=== PATIENT | male | born 1960 | race Hispanic/Latino ===

== ENCOUNTER 2016-12-08 14:51 | Inpatient (IN) | payer MEDICAID, OTHER ==
[2016-12-08 14:52] VITALS: BMI 26.4
[2016-12-08] MEDS ORDERED: Albuterol-Ipratrop 3 mg / 0.5 (3 ml) UD INH STA ×4 (15:21→17:45)
--- NOTE | 2016-12-08 15:42 | RAD ---
PROCEDURE: CHEST RADIOGRAPH, 1 VIEW HISTORY: SOB COMPARISON: None available. FINDINGS: LUNGS: Atelectasis and or developing infiltrates. PLEURA: No pneumothorax or pleural fluid seen. CARDIOVASCULAR: Normal. OSSEOUS STRUCTURES: No significant abnormalities. VISUALIZED UPPER ABDOMEN: Normal. OTHER FINDINGS: None. IMPRESSION: Bibasilar opacities may represent atelectasis and or developing infiltrates. Bibasilar opacities could represent Developing infiltrates could be excluded followup radiographs. .
[2016-12-08] MEDS ORDERED: Albuterol-Ipratrop 3 mg / 0.5 (3 ml) UD ONE ×2 (15:50→16:40)
[2016-12-08 16:15] LABS: BASO # 0.1 K/uL (0.0-0.2); BASO % 0.9 % (0.0-2.0); EOS # 0.2 K/uL (0.0-0.7); EOS % 1.2 % (0.0-4.0); LYMPH # 2.6 K/uL (1.0-4.3); LYMPH % 19.6 % (20.0-40.0); MEAN CELL VOLUME 92.1 fL (80.0-94.0); MEAN CORPUSCULAR HEMOGLOBIN 30.8 pg (27.0-31.0); MEAN CORPUSCULAR HGB CONC 33.5 g/dL (33.0-37.0); MEAN PLATELET VOLUME 7.6 fL (7.2-11.7); MONO # 1.7 K/uL (0.0-0.8); MONO % 12.4 % (0.0-10.0); RED CELL DISTRIBUTION WIDTH 13.7 % (11.5-14.5); WHITE BLOOD COUNT 13.5 K/uL (4.8-10.8)
[2016-12-08 16:25] LABS: CHLORIDE 95 mmol/L (98-107); SODIUM 132 mmol/L (132-148)
[2016-12-08 16:26] LABS: INR 1.2; POTASSIUM 3.8 mmol/L (3.6-5.2)
[2016-12-08 16:27] LABS: GFR AFRICAN-AMERICAN > 60
[2016-12-08 16:28] LABS: ALB/GLOB RATIO 1.2 (1.0-2.1); ALKALINE PHOSPHATASE 63 U/L (38-126); ALT/SGPT 29 U/L (21-72); AST/SGOT 23 U/L (17-59); BILIRUBIN,TOTAL 0.8 mg/dL (0.2-1.3); BLOOD UREA NITROGEN 9 mg/dL (9-20); CARBON DIOXIDE 25 mmol/L (22-30); GLUCOSE,RANDOM 104 mg/dL (75-110); TOTAL PROTEIN 7.2 g/dL (6.3-8.3)
[2016-12-08 16:29] LABS: CALCIUM 8.3 mg/dl (8.6-10.4)
--- NOTE | 2016-12-08 17:02 | C.PDOC ---
History Of Present Illness 56-year-old male, PMHx includes COPD, presents to the emergency department with complaints of shortness of breath, non-productive cough and wheezing for the past three days. Patient states that symptoms worsened over the weekend. Patient admits to pleuritic chest pain associated with the cough. He denies fever, leg swelling, abdominal pain, nausea/vomiting, palpitations. Time Seen by Provider: 12/08/16 15:12 Chief Complaint (Nursing): Respiratory Distress History Per: Patient History/Exam Limitations: no limitations Onset/Duration Of Symptoms: Days Current Symptoms Are (Timing): Still Present Current Respiratory Medications: See Home Med List Severity: Moderate Past Medical History Reviewed: Historical Data, Nursing Documentation, Vital Signs Vital Signs: Last Vital Signs Temp 97.9 F 12/14/16 07:35 Pulse 88 12/14/16 07:35 Resp 20 12/14/16 07:35 BP 144/90 12/14/16 07:35 Pulse Ox 95 12/14/16 07:35 - Medical History PMH: Back Problems, COPD, Depression, Emphysema, Pneumonia, Sleep Apnea - [facility] Procedures ALCOHOL DETOXIFICATION (04/06/15) DETOXIFICATION SERVICES FOR SUBSTANCE ABUSE TREATMENT (09/28/15) GROUP PSYCHOTHERAPY (09/28/15) INDIVID PSYCHOTHERAP NEC (02/12/15) INFLUENZA VACCINATION (05/28/13) INJECT/INFUSE NEC (01/28/15) MEDS MGMT FOR SUBSTANCE ABUSE TREATMENT, ANTABUSE (09/28/15) NEBULIZER THERAPY (11/22/14) OTHER GROUP THERAPY (02/12/15) PSYCHIAT DRUG THERAP NEC (02/12/15) Family History: States: No Known Family Hx - Social History Hx Tobacco Use: Yes Hx Alcohol Use: No Hx Substance Use: Yes (heroin use) - Immunization History Hx Tetanus Toxoid Vaccination: No Hx Influenza Vaccination: No Hx Pneumococcal Vaccination: No Review Of Systems Except As Marked, All Systems Reviewed And Found Negative. Constitutional: Negative for: Fever, Chills Cardiovascular: Negative for: Chest Pain, Palpitations Respiratory: Positive for: Cough, Shortness of Breath, Wheezing Gastrointestinal: Negative for: Nausea, Vomiting, Abdominal Pain Musculoskeletal: Negative for: Back Pain Skin: Negative for: Rash Neurological: Negative for: Weakness, Numbness, Dizziness Physical Exam - Physical Exam Appears: Non-toxic, No Acute Distress (mild distress), Other (speaking in full sentences.) Skin: Warm, Dry, No Rash Head: Normacephalic Eye(s): bilateral: Normal Inspection Oral Mucosa: Moist Neck: Normal, Normal ROM Chest: Symmetrical Cardiovascular: Rhythm Regular Respiratory: No Accessory Muscle Use, No Rales, No Rhonchi, Wheezing ( expiratory wheezing B/L) Gastrointestinal/Abdominal: Normal Exam, Bowel Sounds, Soft, No Tenderness Extremity: Normal ROM, No Pedal Edema, No Calf Tenderness Pulses: Left Dorsalis Pedis: Normal, Right Dorsalis Pedis: Normal Neurological/Psych: Oriented x3 ED Course And Treatment - Laboratory Results Result Diagrams: 12/13/16 07:09 12/13/16 07:09 ECG: Interpreted By Me, Viewed By Me (sinus tachycardia 104 bpm, normal axis, no acute ST/T wave changes) ECG Interpretation: Abnormal (tachycardia ) O2 Sat by Pulse Oximetry: 97 (RA) Pulse Ox Interpretation: Normal - Radiology CXR Interpretation: Yes: Other (Bibasilar opacities may represent atelectasis and or developing infiltrates. Bibasilar opacities could represent Developing infiltrates could be excluded followup radiographs.) Progress Note: Bloodwork, EKG, Chest X-Ray ordered and reviewed. Patient given IV solumedrol and multiple duoneb treatments. IV avelox given for pneumonia, IV ativan given for mild tremors/alcohol withdrawal. Patient states he does not have PMD yet, will be seeing Dr. Mejia when his insurance comes through , but has yet done so. 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 Reevaluation Time: 05:40 Reassessment Condition: Improved (On reassessment, patient still c/o SOB. On exam, he has mild tremors and admits he is withdrawing from alcohol, last drink was yesterday. He has improved air entry B/L with expiratory wheezing B/L. POx 88-90% on RA. CXR shows B/L developing infiltrates. Patient will need admission for copd/pneumonia.) - Physician Consult Information Physician Contacted: Caryn Zapata Outcome Of Conversation: Discussed patient with Dr. Jasmina Zapata, agrees with admission for COPD exacerbation, pneumonia, alcohol/heroin dependence, alcohol withdrawal. Critical Care Time - Critical Care Note Total Time (in mins): 35 Documented critical care: time excludes all time spent performing seperately billable procedures. Disposition - Disposition Disposition: HOSPITALIZED Disposition Time: 17:51 Condition: STABLE - Clinical Impression Clinical Impression: COPD (chronic obstructive pulmonary disease), Alcohol dependence, Opioid dependence, Pneumonia, Alcohol withdrawal - Scribe Statement The provider has reviewed the documentation as recorded by the Aliaibasia Sage All medical record entries made by the Scribe were at my direction and personally dictated by me. I have reviewed the chart and agree that the record accurately reflects my personal performance of the history, physical exam, medical decision making, and the department course for this patient. I have also personally directed, reviewed, and agree with the discharge instructions and disposition. Decision To Admit - Pt Status Changed To: Hospital Disposition Of: Inpatient - Admit Certification Admit to Inpatient:: After my assessment, the patient will require hospitalization for at least two midnights. This is because of the severity of symptoms shown, intensity of services needed, and/or the medical risk in this patient being treated as an outpatient. - InPatient: Physician Admission Certification: I certify that this patient requires 2 or more midnights of care for the following reason:: see notes - . Bed Request Type: Telemetry Admitting Physician: Caryn Zapata Patient Diagnosis: COPD (chronic obstructive pulmonary disease), Alcohol dependence, Opioid dependence, Pneumonia, Alcohol withdrawal
[2016-12-08] MEDS ORDERED: Moxifloxacin IV 400mg/250ml NS 400 MG/250 ML BAG IVPB STA (17:43)
[2016-12-08] MEDS ORDERED: Multivitamin (MVI) 10 ML, Thiamine 100 MG, Folic Acid 1 MG in Sodium Chloride 0.9% 1,00... IVPB ONE (17:45)
[2016-12-08] MEDS ORDERED: Albuterol 0.083% Inhal Sol (2.5 mg/3 mL) UD IH STA (17:52)
[2016-12-08] MEDS ORDERED: Albuterol-Ipratrop 3 mg / 0.5 (3 ml) UD IH SCH (18:00)
[2016-12-08] MEDS ORDERED: Moxifloxacin IV 400mg/250ml NS 400 MG/250 ML BAG IVPB ONE (18:38)
[2016-12-08] MEDS: Albuterol-Ipratrop 3 mg / 0.5 (3 ml) UD IH SCH (20:45)
--- NOTE | 2016-12-08 21:20 | CP.PCM.HP ---
Past Patient History - Infectious Disease Hx of Infectious Diseases: None - Tetanus Immunizations Tetanus Immunization: Unknown - Past Medical History & Family History Past Medical History?: Yes - Past Social History Smoking Status: Light Smoker < 10 Cigarettes Daily - CARDIAC Hx Cardiac Disorders: No Hx Hypertension: No - PULMONARY Hx Respiratory Disorders: Yes Hx Chronic Obstructive Pulmonary Disease (COPD): Yes Hx Emphysema: Yes Hx Pneumonia: Yes Hx Sleep Apnea: Yes - NEUROLOGICAL Hx Neurological Disorder: No Hx Seizures: No - HEENT Hx HEENT Problems: No - RENAL Hx Chronic Kidney Disease: No - ENDOCRINE/METABOLIC Hx Endocrine Disorders: No - HEMATOLOGICAL/ONCOLOGICAL Hx Blood Disorders: No Hx Human Immunodeficiency Virus (HIV): No - INTEGUMENTARY Hx Dermatological Problems: No - MUSCULOSKELETAL/RHEUMATOLOGICAL Hx Falls: No - GASTROINTESTINAL Hx Gastrointestinal Disorders: No - GENITOURINARY/GYNECOLOGICAL Hx Genitourinary Disorders: No Hx Sexually Transmitted Disorders: No - PSYCHIATRIC Hx Psychophysiologic Disorder: Yes Hx Depression: Yes Hx Substance Use: Yes (heroin use last 12/06/16 at 1pm) - SURGICAL HISTORY Hx Surgeries: No - ANESTHESIA Hx Anesthesia: No Meds Allergies/Adverse Reactions: Allergies Allergy/AdvReac Type Severity Reaction Status Date / Time No Known Allergies Allergy Verified 12/08/16 14:59 Results - Vital Signs Recent Vital Signs: Last Vital Signs Temp 98 F 12/08/16 20:05 Pulse 115 H 12/08/16 20:45 Resp 20 12/08/16 20:05 BP 126/80 12/08/16 20:05 Pulse Ox 93 L 12/08/16 20:05 - Labs Result Diagrams: 12/08/16 16:12 12/08/16 16:12
[2016-12-08] MEDS: Moxifloxacin IV 400mg/250ml NS 400 MG/250 ML BAG IVPB SCH (22:34)
[2016-12-08] MEDS: MethylPREDNISolone 40 mg Vial IVP SCH (22:37)
[2016-12-09] MEDS: Albuterol-Ipratrop 3 mg / 0.5 (3 ml) UD IH SCH ×3 (01:20→07:49)
[2016-12-09] MEDS: Albuterol-Ipratrop 3 mg / 0.5 (3 ml) UD INH SCH ×4 (02:32→20:06)
[2016-12-09] MEDS ORDERED: DiphenhydrAMINE 50 mg/ml Inj IVP STA (02:53)
[2016-12-09] MEDS: MethylPREDNISolone 40 mg Vial IVP SCH ×2 (06:54→14:02)
[2016-12-09] MEDS: Tiotropium 18 mcg Cap For Inhalation INH SCH (08:34)
[2016-12-09] MEDS: Fluticasone-Salmeterol 250-50mcg Diskus INH SCH ×2 (08:34→20:06)
[2016-12-09] MEDS: Enoxaparin 40 mg Syringe SC SCH (09:10)
[2016-12-09] MEDS: Pantoprazole 40 mg EC Tab PO SCH (09:10)
--- NOTE | 2016-12-09 09:41 | CP.PCM.PN ---
Addendum entered and electronically signed by Arlin Adams DO 12/09/16 10:18 : Add to assessment: -Alcohol use disorder Start Librium taper Multivitamin, Folic acid, thiamine daily Monitor for withdrawal Original Note: <Arlin Adams - Last Filed: 12/09/16 09:28> Subjective - Date & Time of Evaluation Date of Evaluation: 12/09/16 Time of Evaluation: 09:28 - Subjective Subjective: Medicine Progress Note- Arlin Adams PGY2 Patient seen and examined. Patient has a history of COPD and states that since Wednesday 12/06 he has been experiencing productive coughing with green colored sputum. The patient is breathing comfortably. Denies chest pain, fever, swelling, abdominal pain, and headache. Objective - Vital Signs/Intake and Output Vital Signs (last 24 hours): Temp Pulse Resp BP Pulse Ox 97.6 F 77 20 136/76 98 12/08/16 23:30 12/09/16 04:01 12/08/16 23:30 12/08/16 23:30 12/08/16 23:30 Intake and Output: 12/09/16 12/09/16 06:59 18:59 Intake Total 1425 Output Total 1000 Balance 425 - Medications Medications: Current Medications Albuterol/Ipratropium (Duoneb 3 Mg/0.5 Mg (3 Ml) Ud) 3 ml INH RQ6 [facility] Last Admin: 12/09/16 07:50 Dose: 3 ml Enoxaparin Sodium (Lovenox) 40 mg SC DAILY [facility] Last Admin: 12/09/16 09:10 Dose: 40 mg Guaifenesin (Mucinex La) 600 mg PO Q12 [facility] Moxifloxacin HCl (Avelox Iv 400mg/250ml Ns) 400 mg in 250 mls @ 167 mls/hr IVPB Q24H [facility] Last Admin: 12/08/16 22:34 Dose: Not Given Methylprednisolone (Solu-Medrol) 40 mg IVP Q8 [facility] Last Admin: 12/09/16 06:54 Dose: 40 mg Montelukast Sodium (Singulair) 10 mg PO HS [facility] Last Admin: 12/08/16 22:37 Dose: 10 mg Pantoprazole Sodium (Protonix Ec Tab) 40 mg PO DAILY [facility] Last Admin: 12/09/16 09:10 Dose: 40 mg Fluticasone/Salmeterol (Advair Diskus 250/50) 1 puff INH RQ12 [facility] Last Admin: 12/09/16 08:34 Dose: 1 puff Tiotropium [place] (Spiriva) 18 mcg INH RQD [facility] Last Admin: 12/09/16 08:34 Dose: 18 mcg - Labs Labs: PT 13.2 SECONDS (9.7-12.2) H 12/08/16 16:12 INR 1.2 12/08/16 16:12 APTT 31 SECONDS (21-34) 12/08/16 16:12 - Constitutional Appears: Non-toxic, No Acute Distress - Head Exam Head Exam: ATRAUMATIC, NORMOCEPHALIC - Eye Exam Eye Exam: EOMI, Normal appearance - ENT Exam ENT Exam: Mucous Membranes Moist - Neck Exam Neck Exam: Normal Inspection - Respiratory Exam Respiratory Exam: Rhonchi, Wheezes. absent: Accessory Muscle Use, Respiratory Distress - Cardiovascular Exam Cardiovascular Exam: REGULAR RHYTHM, +S1, +S2 - GI/Abdominal Exam GI & Abdominal Exam: Soft, Normal Bowel Sounds. absent: Tenderness - Extremities Exam Extremities Exam: absent: Pedal Edema - Neurological Exam Neurological Exam: Alert, Awake, Oriented x3 - Psychiatric Exam Psychiatric exam: Normal Affect, Normal Mood - Skin Skin Exam: Dry, Intact, Warm Assessment and Plan - Assessment and Plan (Free Text) Assessment: 1. Pneumonia WBC 13.5, afebrile f/u blood culture, sputum culture f/u legionella, mycoplasma, procalcitonin Duonebs 3ml INH q6h [facility] Solumedrol 40mg IV q8h Mucinex 600mg PO q12h CXR- bilateral infiltrates Avelox 400mg IV daily Advair 1 puff INH q12h 2. 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 Prophylactic measures Lovenox 40mg SC daily Protonix 40mg PO daily [facility] <Caryn Zapata S - Last Filed: 12/09/16 14:09> Objective - Vital Signs/Intake and Output Vital Signs (last 24 hours): Temp Pulse Resp BP Pulse Ox 97.6 F 109 H 20 136/76 98 12/08/16 23:30 12/09/16 11:00 12/08/16 23:30 12/08/16 23:30 12/08/16 23:30 Intake and Output: 12/09/16 12/09/16 06:59 18:59 Intake Total 1425 Output Total 1000 Balance 425 - Medications Medications: Current Medications Albuterol/Ipratropium (Duoneb 3 Mg/0.5 Mg (3 Ml) Ud) 3 ml INH RQ6 [facility] Last Admin: 12/09/16 13:36 Dose: 3 ml Chlordiazepoxide (Librium) 25 mg PO Q6 [facility] PRN Reason: Taper Stop: 12/13/16 11:59 Last Admin: 12/09/16 11:02 Dose: 25 mg Enoxaparin Sodium (Lovenox) 40 mg SC DAILY [facility] Last Admin: 12/09/16 09:10 Dose: 40 mg Folic Acid (Folic Acid) 1 mg PO DAILY [facility] Last Admin: 12/09/16 10:30 Dose: 1 mg Guaifenesin (Mucinex La) 600 mg PO Q12 [facility] Last Admin: 12/09/16 10:30 Dose: 600 mg Moxifloxacin HCl (Avelox Iv 400mg/250ml Ns) 400 mg in 250 mls @ 167 mls/hr IVPB Q24H [facility] Last Admin: 12/08/16 22:34 Dose: Not Given Methylprednisolone (Solu-Medrol) 40 mg IVP Q8 [facility] Last Admin: 12/09/16 14:02 Dose: 40 mg Montelukast Sodium (Singulair) 10 mg PO HS [facility] Last Admin: 12/08/16 22:37 Dose: 10 mg Multivitamins (Hexavitamin) 1 tab PO DAILY [facility] Last Admin: 12/09/16 10:30 Dose: 1 tab Pantoprazole Sodium (Protonix Ec Tab) 40 mg PO DAILY [facility] Last Admin: 12/09/16 09:10 Dose: 40 mg Fluticasone/Salmeterol (Advair Diskus 250/50) 1 puff INH RQ12 [facility] Last Admin: 12/09/16 08:34 Dose: 1 puff Thiamine HCl (Vitamin B1 Tab) 100 mg PO DAILY [facility] Last Admin: 12/09/16 10:30 Dose: 100 mg Tiotropium [place] (Spiriva) 18 mcg INH RQD [facility] Last Admin: 12/09/16 08:34 Dose: 18 mcg - Labs Labs: 12/09/16 11:38 12/09/16 11:38 PT 13.2 SECONDS (9.7-12.2) H 12/08/16 16:12 INR 1.2 12/08/16 16:12 APTT 31 SECONDS (21-34) 12/08/16 16:12 Attending/Attestation - Attestation I have personally seen and examined this patient.: Yes I have fully participated in the care of the patient.: Yes I have reviewed all pertinent clinical information, including history, physical exam and plan: Yes Notes (Text): 12/09/16 14:08 case seen and discsused withs taff and resident pt admit to abuse drugs and still smokes 5 cig per day willmonitor pt lcosley hallie iv antibiotic adn other mx as ordered
[2016-12-09] MEDS: guaiFENesin 600 mg ER Tab PO SCH ×2 (10:30→22:21)
[2016-12-09] MEDS: Multiple Vitamins Tab PO SCH (10:30)
--- NOTE | 2016-12-09 11:12 | CP.PCM.CON ---
History of Present Illness - History of Present Illness History of Present Illness: Reason for consultation: Shortness of breath 56-year-old male with long history of smoking presented to the emergency room with 3 day history of worsening shortness of breath associated with cough productive of greenish phlegm, and chest pain on coughing. Review of Systems - Review of Systems All systems: reviewed and no additional remarkable complaints except (Shortness of breath and cough) Past Patient History - Infectious Disease Hx of Infectious Diseases: None - Tetanus Immunizations Tetanus Immunization: Unknown - Past Medical History & Family History Past Medical History?: Yes - Past Social History Smoking Status: Light Smoker < 10 Cigarettes Daily - CARDIAC Hx Cardiac Disorders: No Hx Hypertension: No - PULMONARY Hx Respiratory Disorders: Yes Hx Chronic Obstructive Pulmonary Disease (COPD): Yes Hx Emphysema: Yes Hx Pneumonia: Yes Hx Sleep Apnea: Yes - NEUROLOGICAL Hx Neurological Disorder: No Hx Seizures: No - HEENT Hx HEENT Problems: No - RENAL Hx Chronic Kidney Disease: No - ENDOCRINE/METABOLIC Hx Endocrine Disorders: No - HEMATOLOGICAL/ONCOLOGICAL Hx Blood Disorders: No Hx Human Immunodeficiency Virus (HIV): No - INTEGUMENTARY Hx Dermatological Problems: No - MUSCULOSKELETAL/RHEUMATOLOGICAL Hx Falls: No - GASTROINTESTINAL Hx Gastrointestinal Disorders: No - GENITOURINARY/GYNECOLOGICAL Hx Genitourinary Disorders: No Hx Sexually Transmitted Disorders: No - PSYCHIATRIC Hx Psychophysiologic Disorder: Yes Hx Depression: Yes Hx Substance Use: Yes (heroin use last 12/06/16 at 1pm) - SURGICAL HISTORY Hx Surgeries: No - ANESTHESIA Hx Anesthesia: No Meds Allergies/Adverse Reactions: Allergies Allergy/AdvReac Type Severity Reaction Status Date / Time No Known Allergies Allergy Verified 12/08/16 14:59 - Medications Medications: Current Medications Albuterol/Ipratropium (Duoneb 3 Mg/0.5 Mg (3 Ml) Ud) 3 ml INH RQ6 [facility] Last Admin: 12/09/16 07:50 Dose: 3 ml Chlordiazepoxide (Librium) 0 mg PO Q6 [facility] PRN Reason: Taper Stop: 12/13/16 11:59 Last Admin: 12/09/16 11:02 Dose: 25 mg Enoxaparin Sodium (Lovenox) 40 mg SC DAILY [facility] Last Admin: 12/09/16 09:10 Dose: 40 mg Folic Acid (Folic Acid) 1 mg PO DAILY [facility] Last Admin: 05/16/17 10:30 Dose: 1 mg Guaifenesin (Mucinex La) 600 mg PO Q12 [facility] Last Admin: 12/09/16 10:30 Dose: 600 mg Moxifloxacin HCl (Avelox Iv 400mg/250ml Ns) 400 mg in 250 mls @ 167 mls/hr IVPB Q24H [facility] Last Admin: 12/08/16 22:34 Dose: Not Given Methylprednisolone (Solu-Medrol) 40 mg IVP Q8 [facility] Last Admin: 12/09/16 06:54 Dose: 40 mg Montelukast Sodium (Singulair) 10 mg PO HS [facility] Last Admin: 12/08/16 22:37 Dose: 10 mg Multivitamins (Hexavitamin) 1 tab PO DAILY [facility] Last Admin: 12/09/16 10:30 Dose: 1 tab Pantoprazole Sodium (Protonix Ec Tab) 40 mg PO DAILY [facility] Last Admin: 12/09/16 09:10 Dose: 40 mg Fluticasone/Salmeterol (Advair Diskus 250/50) 1 puff INH RQ12 [facility] Last Admin: 12/09/16 08:34 Dose: 1 puff Thiamine HCl (Vitamin B1 Tab) 100 mg PO DAILY [facility] Last Admin: 12/09/16 10:30 Dose: 100 mg Tiotropium [place] (Spiriva) 18 mcg INH RQD [facility] Last Admin: 12/09/16 08:34 Dose: 18 mcg Physical Exam - Constitutional Appears: No Acute Distress - Head Exam Head Exam: ATRAUMATIC, NORMOCEPHALIC - Eye Exam Eye Exam: Normal appearance - ENT Exam ENT Exam: Mucous Membranes Moist - Neck Exam Neck exam: Positive for: Normal Inspection - Respiratory Exam Respiratory Exam: Rhonchi, Wheezes - Cardiovascular Exam Cardiovascular Exam: REGULAR RHYTHM - GI/Abdominal Exam GI & Abdominal Exam: Normal Bowel Sounds, Soft - Extremities Exam Extremities exam: Positive for: normal inspection - Neurological Exam Neurological exam: Alert, Oriented x3 Results - Vital Signs Recent Vital Signs: Last Vital Signs Temp 97.6 F 12/08/16 23:30 Pulse 77 12/09/16 04:01 Resp 20 12/08/16 23:30 BP 136/76 12/08/16 23:30 Pulse Ox 98 12/08/16 23:30 - Labs Result Diagrams: 12/08/16 16:12 12/08/16 16:12 Labs: Laboratory Results - last 24 hr 12/09/16 10:23 Urine Opiates Screen Positive Urine Methadone Screen Negative Ur Barbiturates Screen Negative Ur Phencyclidine Scrn Negative Ur Amphetamines Screen Negative U Benzodiazepines Scrn Negative U Oth Cocaine Metabols Negative U Cannabinoids Screen Negative Assessment & Plan (1) COPD exacerbation Status: Acute
[2016-12-09 11:54] LABS: BASO % 0.1 % (0.0-2.0); HEMATOCRIT 33.5 % (35.0-51.0); LYMPH # 0.9 K/uL (1.0-4.3); LYMPH % 6.5 % (20.0-40.0); MEAN CELL VOLUME 93.2 fL (80.0-94.0); MEAN CORPUSCULAR HEMOGLOBIN 30.7 pg (27.0-31.0); MEAN CORPUSCULAR HGB CONC 32.9 g/dL (33.0-37.0); MEAN PLATELET VOLUME 8.4 fL (7.2-11.7); MONO # 0.4 K/uL (0.0-0.8); MONO % 3.2 % (0.0-10.0); PLATELET COUNT 329 K/uL (130-400); RED CELL DISTRIBUTION WIDTH 13.9 % (11.5-14.5); WHITE BLOOD COUNT 13.5 K/uL (4.8-10.8)
[2016-12-09 12:11] LABS: CHLORIDE 100 mmol/L (98-107)
[2016-12-09 12:12] LABS: POTASSIUM 3.8 mmol/L (3.6-5.2); SODIUM 134 mmol/L (132-148)
[2016-12-09 12:14] LABS: ALB/GLOB RATIO 1.2 (1.0-2.1); AST/SGOT 21 U/L (17-59); BILIRUBIN,TOTAL 0.5 mg/dL (0.2-1.3); CARBON DIOXIDE 22 mmol/L (22-30); GFR AFRICAN-AMERICAN > 60; TOTAL PROTEIN 7.1 g/dL (6.3-8.3)
[2016-12-09 12:15] LABS: ALKALINE PHOSPHATASE 73 U/L (38-126); ALT/SGPT 26 U/L (21-72); BLOOD UREA NITROGEN 14 mg/dL (9-20); CALCIUM 8.7 mg/dl (8.6-10.4); GLUCOSE,RANDOM 345 mg/dL (75-110)
[2016-12-09 12:44] LABS: NEUTROPHIL 88 % (50-75); TOTAL CELLS COUNTED 100
[2016-12-09 12:49] LABS: LARGE PLATELETS PRESENT
--- NOTE | 2016-12-09 16:00 | CP.PCM.PN ---
Subjective - Date & Time of Evaluation Date of Evaluation: 12/09/16 Time of Evaluation: 11:20 - Subjective Subjective: clinically same Objective - Vital Signs/Intake and Output Vital Signs (last 24 hours): Temp Pulse Resp BP Pulse Ox 98 F 71 20 141/79 98 12/09/16 15:00 12/09/16 15:00 12/09/16 15:00 12/09/16 15:00 12/09/16 15:00 Intake and Output: 12/09/16 12/09/16 06:59 18:59 Intake Total 1425 Output Total 1000 Balance 425 - Medications Medications: Current Medications Albuterol/Ipratropium (Duoneb 3 Mg/0.5 Mg (3 Ml) Ud) 3 ml INH RQ6 [facility] Last Admin: 12/09/16 13:36 Dose: 3 ml Chlordiazepoxide (Librium) 25 mg PO Q6 [facility] PRN Reason: Taper Stop: 12/13/16 11:59 Last Admin: 12/09/16 11:02 Dose: 25 mg Enoxaparin Sodium (Lovenox) 40 mg SC DAILY [facility] Last Admin: 12/09/16 09:10 Dose: 40 mg Folic Acid (Folic Acid) 1 mg PO DAILY [facility] Last Admin: 12/09/16 10:30 Dose: 1 mg Guaifenesin (Mucinex La) 600 mg PO Q12 [facility] Last Admin: 12/09/16 10:30 Dose: 600 mg Moxifloxacin HCl (Avelox Iv 400mg/250ml Ns) 400 mg in 250 mls @ 167 mls/hr IVPB Q24H [facility] Last Admin: 12/08/16 22:34 Dose: Not Given Methylprednisolone (Solu-Medrol) 40 mg IVP Q8 [facility] Last Admin: 12/09/16 14:02 Dose: 40 mg Montelukast Sodium (Singulair) 10 mg PO HS [facility] Last Admin: 12/08/16 22:37 Dose: 10 mg Multivitamins (Hexavitamin) 1 tab PO DAILY [facility] Last Admin: 12/09/16 10:30 Dose: 1 tab Pantoprazole Sodium (Protonix Ec Tab) 40 mg PO DAILY [facility] Last Admin: 12/09/16 09:10 Dose: 40 mg Fluticasone/Salmeterol (Advair Diskus 250/50) 1 puff INH RQ12 [facility] Last Admin: 12/09/16 08:34 Dose: 1 puff Thiamine HCl (Vitamin B1 Tab) 100 mg PO DAILY [facility] Last Admin: 12/09/16 10:30 Dose: 100 mg Tiotropium [place] (Spiriva) 18 mcg INH RQD [facility] Last Admin: 12/09/16 08:34 Dose: 18 mcg - Labs Labs: 12/09/16 11:38 12/09/16 11:38 PT 13.2 SECONDS (9.7-12.2) H 12/08/16 16:12 INR 1.2 12/08/16 16:12 APTT 31 SECONDS (21-34) 12/08/16 16:12 - Constitutional Appears: Well - Head Exam Head Exam: ATRAUMATIC, NORMAL INSPECTION, NORMOCEPHALIC - Eye Exam Eye Exam: EOMI, Normal appearance, PERRL Pupil Exam: NORMAL ACCOMODATION, PERRL - ENT Exam ENT Exam: Mucous Membranes Moist, Normal Exam - Neck Exam Neck Exam: Full ROM, Normal Inspection. absent: Lymphadenopathy - Respiratory Exam Respiratory Exam: Decreased Breath Sounds - Cardiovascular Exam Cardiovascular Exam: REGULAR RHYTHM, +S1, +S2 - GI/Abdominal Exam GI & Abdominal Exam: Soft, Diminished Bowel Sounds - Rectal Exam Rectal Exam: Deferred
[2016-12-09 17:13] LABS: LEGIONELLA AG URINE NEGATIVE (NEGATIVE)
--- NOTE | 2016-12-09 18:28 | CARD ---
APPROVED REPORT EKG Measurement Heart [id number] <Conclusion> Sinus tachycardia Otherwise normal ECG
[2016-12-09] MEDS: Moxifloxacin IV 400mg/250ml NS 400 MG/250 ML BAG IVPB SCH (21:33)
[2016-12-10] MEDS: Albuterol-Ipratrop 3 mg / 0.5 (3 ml) UD INH SCH ×4 (03:43→19:38)
[2016-12-10] MEDS: MethylPREDNISolone 40 mg Vial IVP SCH ×3 (05:31→22:03)
--- NOTE | 2016-12-10 07:34 | CP.PCM.PN ---
<Arlin Adams - Last Filed: 12/10/16 10:16> Subjective - Date & Time of Evaluation Date of Evaluation: 12/10/16 Time of Evaluation: 09:15 - Subjective Subjective: Medicine Progress Note- Arlin Adams PGY2 Patient seen and examined. Patient states that he feels better today. Patient was ambulating frequently around halls yesterday and denies shortness of breath or difficulty breathing. Patient states that he is still having productive sputum when he coughs. Denies fever, chills, nausea, vomiting, chest pain, palpitations, dizziness. Objective - Vital Signs/Intake and Output Vital Signs (last 24 hours): Temp Pulse Resp BP Pulse Ox 97.6 F 79 20 130/80 96 12/09/16 23:35 12/10/16 04:31 12/09/16 23:35 12/09/16 23:35 12/09/16 23:35 Intake and Output: 12/10/16 12/10/16 06:59 18:59 Intake Total 240 Balance 240 - Medications Medications: Current Medications Albuterol/Ipratropium (Duoneb 3 Mg/0.5 Mg (3 Ml) Ud) 3 ml INH RQ6 [facility] Last Admin: 12/10/16 03:43 Dose: Not Given Chlordiazepoxide (Librium) 25 mg PO Q6 [facility] PRN Reason: Taper Stop: 12/13/16 11:59 Last Admin: 12/10/16 05:30 Dose: 25 mg Enoxaparin Sodium (Lovenox) 40 mg SC DAILY [facility] Last Admin: 12/09/16 09:10 Dose: 40 mg Folic Acid (Folic Acid) 1 mg PO DAILY [facility] Last Admin: 12/09/16 10:30 Dose: 1 mg Guaifenesin (Mucinex La) 600 mg PO Q12 [facility] Last Admin: 12/09/16 22:21 Dose: 600 mg Moxifloxacin HCl (Avelox Iv 400mg/250ml Ns) 400 mg in 250 mls @ 167 mls/hr IVPB Q24H [facility] Last Admin: 12/09/16 21:33 Dose: 167 mls/hr Methylprednisolone (Solu-Medrol) 40 mg IVP Q8 [facility] Last Admin: 12/10/16 05:31 Dose: 40 mg Montelukast Sodium (Singulair) 10 mg PO HS [facility] Last Admin: 12/09/16 21:32 Dose: 10 mg Multivitamins (Hexavitamin) 1 tab PO DAILY [facility] Last Admin: 12/09/16 10:30 Dose: 1 tab Pantoprazole Sodium (Protonix Ec Tab) 40 mg PO DAILY [facility] Last Admin: 12/09/16 09:10 Dose: 40 mg Fluticasone/Salmeterol (Advair Diskus 250/50) 1 puff INH RQ12 [facility] Last Admin: 12/09/16 20:06 Dose: 1 puff Temazepam (Restoril) 15 mg PO HS PRN PRN Reason: Sleep Last Admin: 12/09/16 21:32 Dose: 15 mg Thiamine HCl (Vitamin B1 Tab) 100 mg PO DAILY [facility] Last Admin: 12/09/16 10:30 Dose: 100 mg Tiotropium [place] (Spiriva) 18 mcg INH RQD [facility] Last Admin: 12/09/16 08:34 Dose: 18 mcg - Labs Labs: 12/09/16 11:38 12/09/16 11:38 PT 13.2 SECONDS (9.7-12.2) H 12/08/16 16:12 INR 1.2 12/08/16 16:12 APTT 31 SECONDS (21-34) 12/08/16 16:12 - Constitutional Appears: Non-toxic, No Acute Distress - Head Exam Head Exam: ATRAUMATIC, NORMOCEPHALIC - Eye Exam Eye Exam: EOMI, Normal appearance - ENT Exam ENT Exam: Mucous Membranes Moist - Neck Exam Neck Exam: Normal Inspection - Respiratory Exam Respiratory Exam: Rales, Rhonchi (diffuse rhonchi both with anterior and posterior ausculation ), Wheezes, NORMAL BREATHING PATTERN. absent: Accessory Muscle Use, Chest Wall Tenderness, Respiratory Distress - Cardiovascular Exam Cardiovascular Exam: REGULAR RHYTHM, +S1, +S2 - GI/Abdominal Exam GI & Abdominal Exam: Soft, Normal Bowel Sounds. absent: Tenderness - Extremities Exam Extremities Exam: Normal Inspection. absent: Pedal Edema - Neurological Exam Neurological Exam: Alert, Awake, CN II-XII Intact, Normal Gait, Oriented x3 - Psychiatric Exam Psychiatric exam: Normal Affect, Normal Mood Assessment and Plan - Assessment and Plan (Free Text) Assessment: 1. Pneumonia afebrile f/u sputum culture blood culture negative x24 hours legionella, mycoplasma, and procalcitonin all negative Duonebs 3ml INH q6h [facility] Solumedrol 40mg IV q8h Mucinex 600mg PO q12h Phenergan 5ml PO q6h CXR- bilateral infiltrates Avelox 400mg IV daily Advair 1 puff INH q12h 2. 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 Alcohol use disorder UDS positive for opiates Start Librium taper Multivitamin, Folic acid, thiamine daily Monitor for withdrawal Counseled on substance abuse cessation 3. Prophylactic measures Lovenox 40mg SC daily Protonix 40mg PO daily [facility] Management per Dr Zapata <Caryn Zapata S - Last Filed: 12/12/16 20:17> Objective - Vital Signs/Intake and Output Vital Signs (last 24 hours): Temp Pulse Resp BP Pulse Ox 97.7 F 105 H 20 135/87 94 L 12/12/16 16:06 12/12/16 16:06 12/12/16 16:06 12/12/16 16:06 12/12/16 16:06 - Medications Medications: Current Medications Albuterol/Ipratropium (Duoneb 3 Mg/0.5 Mg (3 Ml) Ud) 3 ml INH RQ6 [facility] Last Admin: 12/12/16 19:27 Dose: 3 ml Chlordiazepoxide (Librium) 25 mg PO DAILY [facility] PRN Reason: Taper Stop: 12/13/16 11:59 Last Admin: 12/12/16 10:31 Dose: 25 mg Enoxaparin Sodium (Lovenox) 40 mg SC DAILY [facility] Last Admin: 12/12/16 10:31 Dose: 40 mg Folic Acid (Folic Acid) 1 mg PO DAILY [facility] Last Admin: 12/12/16 10:30 Dose: 1 mg Guaifenesin (Mucinex La) 600 mg PO Q12 [facility] Last Admin: 12/12/16 10:30 Dose: 600 mg Moxifloxacin HCl (Avelox Iv 400mg/250ml Ns) 400 mg in 250 mls @ 167 mls/hr IVPB Q24H [facility] Last Admin: 12/11/16 22:12 Dose: 167 mls/hr Methylprednisolone (Solu-Medrol) 40 mg IVP Q12 [facility] Last Admin: 12/12/16 10:34 Dose: 40 mg Montelukast Sodium (Singulair) 10 mg PO HS [facility] Last Admin: 12/11/16 22:11 Dose: 10 mg Multivitamins (Hexavitamin) 1 tab PO DAILY [facility] Last Admin: 12/12/16 10:30 Dose: 1 tab Pantoprazole Sodium (Protonix Ec Tab) 40 mg PO DAILY [facility] Last Admin: 12/12/16 10:30 Dose: 40 mg Promethazine HCl/Dextromethorphan (Phenergan Dm Syrup) 5 ml PO Q6H PRN PRN Reason: cough Fluticasone/Salmeterol (Advair Diskus 250/50) 1 puff INH RQ12 [facility] Last Admin: 12/12/16 19:26 Dose: 1 puff Temazepam (Restoril) 15 mg PO HS PRN PRN Reason: Sleep Last Admin: 12/11/16 22:14 Dose: 15 mg Thiamine HCl (Vitamin B1 Tab) 100 mg PO DAILY [facility] Last Admin: 12/12/16 10:30 Dose: 100 mg Tiotropium [place] (Spiriva) 18 mcg INH RQD [facility] Last Admin: 12/12/16 10:12 Dose: 18 mcg - Labs Labs: 12/12/16 08:09 12/12/16 08:09 PT 13.2 SECONDS (9.7-12.2) H 12/08/16 16:12 INR 1.2 12/08/16 16:12 APTT 31 SECONDS (21-34) 12/08/16 16:12 Attending/Attestation - Attestation I have personally seen and examined this patient.: Yes I have fully participated in the care of the patient.: Yes I have reviewed all pertinent clinical information, including history, physical exam and plan: Yes Notes (Text): admitetd for copd exac with pneumonia cont same wbc is increasing on steroid althuog pt si afebrile
[2016-12-10] MEDS: Fluticasone-Salmeterol 250-50mcg Diskus INH SCH ×2 (07:55→19:38)
[2016-12-10] MEDS: Tiotropium 18 mcg Cap For Inhalation INH SCH (07:55)
[2016-12-10] MEDS: guaiFENesin 600 mg ER Tab PO SCH ×2 (09:36→22:03)
[2016-12-10] MEDS: Pantoprazole 40 mg EC Tab PO SCH (09:37)
[2016-12-10] MEDS: Enoxaparin 40 mg Syringe SC SCH (09:37)
[2016-12-10] MEDS: Multiple Vitamins Tab PO SCH (09:40)
[2016-12-10] MEDS ORDERED: Promethazine DM 6.25 mg-15 mg/5 ml Syrup PO PRN (10:15)
--- NOTE | 2016-12-10 10:35 | CP.PCM.PN ---
Subjective - Date & Time of Evaluation Date of Evaluation: 12/10/16 Time of Evaluation: 14:20 - Subjective Subjective: clinically same Objective - Vital Signs/Intake and Output Vital Signs (last 24 hours): Temp Pulse Resp BP Pulse Ox 96.7 F L 75 20 128/84 95 12/10/16 07:00 12/10/16 07:30 12/10/16 07:00 12/10/16 07:00 12/10/16 07:00 Intake and Output: 12/10/16 12/10/16 06:59 18:59 Intake Total 240 Balance 240 - Medications Medications: Current Medications Albuterol/Ipratropium (Duoneb 3 Mg/0.5 Mg (3 Ml) Ud) 3 ml INH RQ6 [facility] Last Admin: 12/10/16 07:55 Dose: 3 ml Chlordiazepoxide (Librium) 25 mg PO Q6 [facility] PRN Reason: Taper Stop: 12/13/16 11:59 Last Admin: 12/10/16 05:30 Dose: 25 mg Enoxaparin Sodium (Lovenox) 40 mg SC DAILY [facility] Last Admin: 12/10/16 09:37 Dose: 40 mg Folic Acid (Folic Acid) 1 mg PO DAILY [facility] Last Admin: 12/10/16 09:36 Dose: 1 mg Guaifenesin (Mucinex La) 600 mg PO Q12 [facility] Last Admin: 12/10/16 09:36 Dose: 600 mg Moxifloxacin HCl (Avelox Iv 400mg/250ml Ns) 400 mg in 250 mls @ 167 mls/hr IVPB Q24H [facility] Last Admin: 12/09/16 21:33 Dose: 167 mls/hr Methylprednisolone (Solu-Medrol) 40 mg IVP Q8 [facility] Last Admin: 12/10/16 05:31 Dose: 40 mg Montelukast Sodium (Singulair) 10 mg PO HS [facility] Last Admin: 12/09/16 21:32 Dose: 10 mg Multivitamins (Hexavitamin) 1 tab PO DAILY [facility] Last Admin: 12/10/16 09:40 Dose: 1 tab Pantoprazole Sodium (Protonix Ec Tab) 40 mg PO DAILY [facility] Last Admin: 12/10/16 09:37 Dose: 40 mg Promethazine HCl/Dextromethorphan (Phenergan Dm Syrup) 5 ml PO Q6H PRN PRN Reason: cough Fluticasone/Salmeterol (Advair Diskus 250/50) 1 puff INH RQ12 [facility] Last Admin: 12/10/16 07:55 Dose: 1 puff Temazepam (Restoril) 15 mg PO HS PRN PRN Reason: Sleep Last Admin: 12/09/16 21:32 Dose: 15 mg Thiamine HCl (Vitamin B1 Tab) 100 mg PO DAILY [facility] Last Admin: 12/10/16 09:37 Dose: 100 mg Tiotropium [place] (Spiriva) 18 mcg INH RQD [facility] Last Admin: 12/10/16 07:55 Dose: 18 mcg - Labs Labs: 12/09/16 11:38 12/09/16 11:38 PT 13.2 SECONDS (9.7-12.2) H 12/08/16 16:12 INR 1.2 12/08/16 16:12 APTT 31 SECONDS (21-34) 12/08/16 16:12 - Constitutional Appears: Well - Head Exam Head Exam: ATRAUMATIC, NORMAL INSPECTION, NORMOCEPHALIC - Eye Exam Eye Exam: EOMI, Normal appearance, PERRL Pupil Exam: NORMAL ACCOMODATION, PERRL - ENT Exam ENT Exam: Mucous Membranes Moist, Normal Exam - Neck Exam Neck Exam: Full ROM, Normal Inspection. absent: Lymphadenopathy - Respiratory Exam Respiratory Exam: Decreased Breath Sounds - Cardiovascular Exam Cardiovascular Exam: REGULAR RHYTHM, +S1, +S2 - GI/Abdominal Exam GI & Abdominal Exam: Soft, Diminished Bowel Sounds - Rectal Exam Rectal Exam: Deferred
[2016-12-10 11:33] LABS: BASO # 0.1 K/uL (0.0-0.2); BASO % 0.2 % (0.0-2.0); HEMATOCRIT 33.1 % (35.0-51.0); LYMPH # 1.3 K/uL (1.0-4.3); LYMPH % 5.7 % (20.0-40.0); MEAN CELL VOLUME 93.8 fL (80.0-94.0); MEAN PLATELET VOLUME 8.4 fL (7.2-11.7); MONO # 0.8 K/uL (0.0-0.8); MONO % 3.6 % (0.0-10.0); PLATELET COUNT 356 K/uL (130-400); RED CELL DISTRIBUTION WIDTH 13.8 % (11.5-14.5)
[2016-12-10 11:42] LABS: CHLORIDE 100 mmol/L (98-107); POTASSIUM 3.8 mmol/L (3.6-5.2); SODIUM 137 mmol/L (132-148)
[2016-12-10 11:45] LABS: ALB/GLOB RATIO 1.2 (1.0-2.1); ALKALINE PHOSPHATASE 70 U/L (38-126); ALT/SGPT 40 U/L (21-72); AST/SGOT 32 U/L (17-59); BILIRUBIN,TOTAL 0.3 mg/dL (0.2-1.3); BLOOD UREA NITROGEN 14 mg/dL (9-20); CARBON DIOXIDE 22 mmol/L (22-30); GFR AFRICAN-AMERICAN > 60; GLUCOSE,RANDOM 316 mg/dL (75-110)
[2016-12-10 11:46] LABS: CALCIUM 8.9 mg/dl (8.6-10.4)
[2016-12-10 11:47] LABS: WHITE BLOOD COUNT 22.9 K/uL (4.8-10.8)
[2016-12-10 12:17] LABS: MYELOCYTE 1 % (0-0); NEUTROPHIL 85 % (50-75); TOTAL CELLS COUNTED 100
--- NOTE | 2016-12-10 14:21 | CP.PCM.PN ---
Subjective - Date & Time of Evaluation Date of Evaluation: 12/10/16 Time of Evaluation: 08:00 - Subjective Subjective: Patient seen and examined. Still complaining of shortness of breath, cough and wheezing Objective - Vital Signs/Intake and Output Vital Signs (last 24 hours): Temp Pulse Resp BP Pulse Ox 96.7 F L 75 20 128/84 95 12/10/16 07:00 12/10/16 07:30 12/10/16 07:00 12/10/16 07:00 12/10/16 07:00 Intake and Output: 12/10/16 12/10/16 06:59 18:59 Intake Total 240 Balance 240 - Medications Medications: Current Medications Albuterol/Ipratropium (Duoneb 3 Mg/0.5 Mg (3 Ml) Ud) 3 ml INH RQ6 [facility] Last Admin: 12/10/16 13:35 Dose: 3 ml Chlordiazepoxide (Librium) 25 mg PO TID [facility] PRN Reason: Taper Stop: 12/13/16 11:59 Last Admin: 12/10/16 13:42 Dose: 25 mg Enoxaparin Sodium (Lovenox) 40 mg SC DAILY [facility] Last Admin: 12/10/16 09:37 Dose: 40 mg Folic Acid (Folic Acid) 1 mg PO DAILY [facility] Last Admin: 12/10/16 09:36 Dose: 1 mg Guaifenesin (Mucinex La) 600 mg PO Q12 [facility] Last Admin: 12/10/16 09:36 Dose: 600 mg Moxifloxacin HCl (Avelox Iv 400mg/250ml Ns) 400 mg in 250 mls @ 167 mls/hr IVPB Q24H [facility] Last Admin: 12/09/16 21:33 Dose: 167 mls/hr Methylprednisolone (Solu-Medrol) 40 mg IVP Q8 [facility] Last Admin: 12/10/16 13:45 Dose: 40 mg Montelukast Sodium (Singulair) 10 mg PO HS [facility] Last Admin: 12/09/16 21:32 Dose: 10 mg Multivitamins (Hexavitamin) 1 tab PO DAILY [facility] Last Admin: 12/10/16 09:40 Dose: 1 tab Pantoprazole Sodium (Protonix Ec Tab) 40 mg PO DAILY [facility] Last Admin: 12/10/16 09:37 Dose: 40 mg Promethazine HCl/Dextromethorphan (Phenergan Dm Syrup) 5 ml PO Q6H PRN PRN Reason: cough Fluticasone/Salmeterol (Advair Diskus 250/50) 1 puff INH RQ12 [facility] Last Admin: 12/10/16 07:55 Dose: 1 puff Temazepam (Restoril) 15 mg PO HS PRN PRN Reason: Sleep Last Admin: 12/09/16 21:32 Dose: 15 mg Thiamine HCl (Vitamin B1 Tab) 100 mg PO DAILY [facility] Last Admin: 12/10/16 09:37 Dose: 100 mg Tiotropium [place] (Spiriva) 18 mcg INH RQD [facility] Last Admin: 12/10/16 07:55 Dose: 18 mcg - Labs Labs: 12/10/16 11:24 12/10/16 11:24 PT 13.2 SECONDS (9.7-12.2) H 12/08/16 16:12 INR 1.2 12/08/16 16:12 APTT 31 SECONDS (21-34) 12/08/16 16:12 - Head Exam Head Exam: ATRAUMATIC, NORMOCEPHALIC - Eye Exam Eye Exam: Normal appearance Pupil Exam: NORMAL ACCOMODATION, PERRL - ENT Exam ENT Exam: Normal Exam - Neck Exam Neck Exam: Normal Inspection - Respiratory Exam Respiratory Exam: Rhonchi, Wheezes - Cardiovascular Exam Cardiovascular Exam: REGULAR RHYTHM - GI/Abdominal Exam GI & Abdominal Exam: Soft, Normal Bowel Sounds Assessment and Plan (1) COPD exacerbation Assessment & Plan: Continue IV steroids, nebulizer treatment and antibiotics Status: Acute
[2016-12-10] MEDS: Moxifloxacin IV 400mg/250ml NS 400 MG/250 ML BAG IVPB SCH (22:03)
[2016-12-11 07:15] LABS: CHLORIDE 103 mmol/L (98-107); POTASSIUM 4.2 mmol/L (3.6-5.2); SODIUM 139 mmol/L (132-148)
[2016-12-11 07:16] LABS: BILIRUBIN,TOTAL 0.5 mg/dL (0.2-1.3); GFR AFRICAN-AMERICAN > 60
[2016-12-11 07:17] LABS: ALB/GLOB RATIO 1.2 (1.0-2.1); ALKALINE PHOSPHATASE 74 U/L (38-126); ALT/SGPT 47 U/L (21-72); AST/SGOT 28 U/L (17-59); BLOOD UREA NITROGEN 13 mg/dL (9-20); CARBON DIOXIDE 24 mmol/L (22-30); GLUCOSE,RANDOM 134 mg/dL (75-110); TOTAL PROTEIN 7.1 g/dL (6.3-8.3)
[2016-12-11 07:18] LABS: CALCIUM 9.3 mg/dl (8.6-10.4)
[2016-12-11 07:53] LABS: BASO # 0.1 K/uL (0.0-0.2); BASO % 0.2 % (0.0-2.0); EOS % 0.1 % (0.0-4.0); LYMPH # 2.1 K/uL (1.0-4.3); LYMPH % 8.7 % (20.0-40.0); MEAN CELL VOLUME 93.9 fL (80.0-94.0); MEAN CORPUSCULAR HEMOGLOBIN 30.6 pg (27.0-31.0); MEAN CORPUSCULAR HGB CONC 32.6 g/dL (33.0-37.0); MEAN PLATELET VOLUME 8.3 fL (7.2-11.7); MONO # 1.2 K/uL (0.0-0.8); NRBC % 0.2 % (0.0-2.0); PLATELET COUNT 401 K/uL (130-400); RED CELL DISTRIBUTION WIDTH 14.2 % (11.5-14.5); WHITE BLOOD COUNT 24.5 K/uL (4.8-10.8)
[2016-12-11] MEDS: Fluticasone-Salmeterol 250-50mcg Diskus INH SCH ×2 (08:10→19:27)
[2016-12-11] MEDS: Tiotropium 18 mcg Cap For Inhalation INH SCH (08:10)
[2016-12-11] MEDS: Albuterol-Ipratrop 3 mg / 0.5 (3 ml) UD INH SCH ×3 (08:10→19:27)
[2016-12-11] MEDS: guaiFENesin 600 mg ER Tab PO SCH (22:11)
[2016-12-11] MEDS: MethylPREDNISolone 40 mg Vial IVP SCH (22:12)
[2016-12-11] MEDS: Moxifloxacin IV 400mg/250ml NS 400 MG/250 ML BAG IVPB SCH (22:12)
--- NOTE | 2016-12-11 22:32 | CP.PCM.PN ---
Objective - Vital Signs/Intake and Output Vital Signs (last 24 hours): Temp Pulse Resp BP Pulse Ox 97.5 F L 90 20 133/79 95 12/10/16 16:24 12/10/16 16:24 12/10/16 16:24 12/10/16 16:24 12/10/16 16:24 - Medications Medications: Current Medications Albuterol/Ipratropium (Duoneb 3 Mg/0.5 Mg (3 Ml) Ud) 3 ml INH RQ6 [facility] Last Admin: 12/11/16 19:27 Dose: 3 ml Chlordiazepoxide (Librium) 25 mg PO BID [facility] PRN Reason: Taper Stop: 12/13/16 11:59 Last Admin: 12/10/16 17:28 Dose: 25 mg Enoxaparin Sodium (Lovenox) 40 mg SC DAILY [facility] Last Admin: 12/10/16 09:37 Dose: 40 mg Folic Acid (Folic Acid) 1 mg PO DAILY [facility] Last Admin: 12/10/16 09:36 Dose: 1 mg Guaifenesin (Mucinex La) 600 mg PO Q12 [facility] Last Admin: 12/11/16 22:11 Dose: 600 mg Moxifloxacin HCl (Avelox Iv 400mg/250ml Ns) 400 mg in 250 mls @ 167 mls/hr IVPB Q24H [facility] Last Admin: 12/11/16 22:12 Dose: 167 mls/hr Methylprednisolone (Solu-Medrol) 40 mg IVP Q8 [facility] Last Admin: 12/11/16 22:12 Dose: 40 mg Montelukast Sodium (Singulair) 10 mg PO HS [facility] Last Admin: 12/11/16 22:11 Dose: 10 mg Multivitamins (Hexavitamin) 1 tab PO DAILY [facility] Last Admin: 12/10/16 09:40 Dose: 1 tab Pantoprazole Sodium (Protonix Ec Tab) 40 mg PO DAILY [facility] Last Admin: 12/10/16 09:37 Dose: 40 mg Promethazine HCl/Dextromethorphan (Phenergan Dm Syrup) 5 ml PO Q6H PRN PRN Reason: cough Fluticasone/Salmeterol (Advair Diskus 250/50) 1 puff INH RQ12 [facility] Last Admin: 12/11/16 19:27 Dose: 1 puff Temazepam (Restoril) 15 mg PO HS PRN PRN Reason: Sleep Last Admin: 12/11/16 22:14 Dose: 15 mg Thiamine HCl (Vitamin B1 Tab) 100 mg PO DAILY [facility] Last Admin: 12/10/16 09:37 Dose: 100 mg Tiotropium [place] (Spiriva) 18 mcg INH RQD [facility] Last Admin: 12/10/16 07:55 Dose: 18 mcg - Labs Labs: 12/11/16 04:00 12/11/16 04:00 PT 13.2 SECONDS (9.7-12.2) H 12/08/16 16:12 INR 1.2 12/08/16 16:12 APTT 31 SECONDS (21-34) 12/08/16 16:12
[2016-12-12] MEDS: Albuterol-Ipratrop 3 mg / 0.5 (3 ml) UD INH SCH ×4 (01:05→19:27)
[2016-12-12] MEDS: MethylPREDNISolone 40 mg Vial IVP SCH ×3 (05:59→22:38)
[2016-12-12 08:43] LABS: BASO # 0.1 K/uL (0.0-0.2); BASO % 0.3 % (0.0-2.0); HEMATOCRIT 36.6 % (35.0-51.0); LYMPH % 7.6 % (20.0-40.0); MEAN CELL VOLUME 94.1 fL (80.0-94.0); MEAN CORPUSCULAR HEMOGLOBIN 30.3 pg (27.0-31.0); MEAN CORPUSCULAR HGB CONC 32.2 g/dL (33.0-37.0); MEAN PLATELET VOLUME 8.2 fL (7.2-11.7); MONO # 1.3 K/uL (0.0-0.8); MONO % 4.7 % (0.0-10.0); NRBC % 0.8 % (0.0-2.0); PLATELET COUNT 435 K/uL (130-400)
[2016-12-12 08:52] LABS: NEUTROPHIL 66 % (50-75); TOTAL CELLS COUNTED 100
[2016-12-12 08:56] LABS: CHLORIDE 96 mmol/L (98-107)
[2016-12-12 08:57] LABS: POTASSIUM 4.1 mmol/L (3.6-5.2); SODIUM 137 mmol/L (132-148)
[2016-12-12 08:59] LABS: ALB/GLOB RATIO 1.3 (1.0-2.1); AST/SGOT 32 U/L (17-59); BILIRUBIN,TOTAL 0.5 mg/dL (0.2-1.3); CARBON DIOXIDE 26 mmol/L (22-30); GFR AFRICAN-AMERICAN > 60; TOTAL PROTEIN 7.2 g/dL (6.3-8.3)
[2016-12-12 09:00] LABS: ALKALINE PHOSPHATASE 77 U/L (38-126); ALT/SGPT 57 U/L (21-72); BLOOD UREA NITROGEN 17 mg/dL (9-20); CALCIUM 9.1 mg/dl (8.6-10.4); GLUCOSE,RANDOM 191 mg/dL (75-110)
--- NOTE | 2016-12-12 09:01 | RAD ---
HISTORY: SOB COMPARISON: 12/08/2016 FINDINGS: LUNGS: Right basilar opacity, no change. No definite left basilar opacity identified. PLEURA: No significant pleural effusion identified, no pneumothorax apparent. CARDIOVASCULAR: Normal. OSSEOUS STRUCTURES: No significant abnormalities. VISUALIZED UPPER ABDOMEN: Normal. OTHER FINDINGS: None. IMPRESSION: Right basilar opacity, unchanged. Follow-up advised.
--- NOTE | 2016-12-12 09:29 | CP.PCM.PN ---
<Arlin Adams - Last Filed: 12/12/16 10:35> Subjective - Date & Time of Evaluation Date of Evaluation: 12/12/16 Time of Evaluation: 10:35 - Subjective Subjective: Medicine Progress Note Patient seen and examined. Patient states that he is feeling better today. Patient continues to have productive cough but states that his sputum production has decreased. Pt does complain of difficulty staying asleep at night. Pt is breathing comfortably on room air and ambulating without difficulty. Denies fever, chest pain, palpitations, shortness of breath, and dizziness. Objective - Vital Signs/Intake and Output Vital Signs (last 24 hours): Temp Pulse Resp BP Pulse Ox 97.9 F 94 H 20 153/92 H 96 12/12/16 08:55 12/12/16 08:55 12/12/16 08:55 12/12/16 08:55 12/12/16 08:55 Intake and Output: 12/12/16 12/12/16 06:59 18:59 Intake Total 240 Balance 240 - Medications Medications: Current Medications Albuterol/Ipratropium (Duoneb 3 Mg/0.5 Mg (3 Ml) Ud) 3 ml INH RQ6 [facility] Last Admin: 12/12/16 07:27 Dose: 3 ml Chlordiazepoxide (Librium) 25 mg PO BID [facility] PRN Reason: Taper Stop: 12/13/16 11:59 Last Admin: 12/10/16 17:28 Dose: 25 mg Enoxaparin Sodium (Lovenox) 40 mg SC DAILY [facility] Last Admin: 12/10/16 09:37 Dose: 40 mg Folic Acid (Folic Acid) 1 mg PO DAILY [facility] Last Admin: 12/10/16 09:36 Dose: 1 mg Guaifenesin (Mucinex La) 600 mg PO Q12 [facility] Last Admin: 12/11/16 22:11 Dose: 600 mg Moxifloxacin HCl (Avelox Iv 400mg/250ml Ns) 400 mg in 250 mls @ 167 mls/hr IVPB Q24H [facility] Last Admin: 12/11/16 22:12 Dose: 167 mls/hr Methylprednisolone (Solu-Medrol) 40 mg IVP Q12 [facility] Montelukast Sodium (Singulair) 10 mg PO HS [facility] Last Admin: 12/11/16 22:11 Dose: 10 mg Multivitamins (Hexavitamin) 1 tab PO DAILY [facility] Last Admin: 12/10/16 09:40 Dose: 1 tab Pantoprazole Sodium (Protonix Ec Tab) 40 mg PO DAILY [facility] Last Admin: 12/10/16 09:37 Dose: 40 mg Promethazine HCl/Dextromethorphan (Phenergan Dm Syrup) 5 ml PO Q6H PRN PRN Reason: cough Fluticasone/Salmeterol (Advair Diskus 250/50) 1 puff INH RQ12 [facility] Last Admin: 12/11/16 19:27 Dose: 1 puff Temazepam (Restoril) 15 mg PO HS PRN PRN Reason: Sleep Last Admin: 12/11/16 22:14 Dose: 15 mg Thiamine HCl (Vitamin B1 Tab) 100 mg PO DAILY [facility] Last Admin: 12/10/16 09:37 Dose: 100 mg Tiotropium [place] (Spiriva) 18 mcg INH RQD [facility] Last Admin: 12/10/16 07:55 Dose: 18 mcg - Labs Labs: 12/12/16 08:09 12/12/16 08:09 PT 13.2 SECONDS (9.7-12.2) H 12/08/16 16:12 INR 1.2 12/08/16 16:12 APTT 31 SECONDS (21-34) 12/08/16 16:12 - Additional Findings Additional findings: - Constitutional Appears: Non-toxic, No Acute Distress - Head Exam Head Exam: ATRAUMATIC, NORMOCEPHALIC - Eye Exam Eye Exam: EOMI, Normal appearance - ENT Exam ENT Exam: Mucous Membranes Moist - Neck Exam Neck Exam: Normal Inspection - Respiratory Exam Respiratory Exam: Rales, Rhonchi (Right chest- diffuse rhonchi both with anterior and posterior ausculation/ Left chest- mild rhonchi, improved), NORMAL BREATHING PATTERN. absent: Accessory Muscle Use, Chest Wall Tenderness, Respiratory Distress - Cardiovascular Exam Cardiovascular Exam: REGULAR RHYTHM, +S1, +S2 - GI/Abdominal Exam GI & Abdominal Exam: Soft, Normal Bowel Sounds. absent: Tenderness - Extremities Exam Extremities Exam: Normal Inspection. absent: Pedal Edema - Neurological Exam Neurological Exam: Alert, Awake, CN II-XII Intact, Normal Gait, Oriented x3 - Psychiatric Exam Psychiatric exam: Normal Affect, Normal Mood Assessment and Plan - Assessment and Plan (Free Text) Assessment: 1. 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 Alcohol use disorder UDS positive for opiates Start Librium taper Multivitamin, Folic acid, thiamine daily Monitor for withdrawal Counseled on substance abuse cessation 3. Prophylactic measures Lovenox 40mg SC daily Protonix 40mg PO daily [facility] Management per Dr Zapata <Caryn Zapata - Last Filed: 12/12/16 15:17> Objective - Vital Signs/Intake and Output Vital Signs (last 24 hours): Temp Pulse Resp BP Pulse Ox 97.9 F 94 H 20 153/92 H 96 12/12/16 08:55 12/12/16 08:55 12/12/16 08:55 12/12/16 08:55 12/12/16 08:55 Intake and Output: 12/12/16 12/12/16 06:59 18:59 Intake Total 240 Balance 240 - Medications Medications: Current Medications Albuterol/Ipratropium (Duoneb 3 Mg/0.5 Mg (3 Ml) Ud) 3 ml INH RQ6 [facility] Last Admin: 12/12/16 13:31 Dose: 3 ml Chlordiazepoxide (Librium) 25 mg PO DAILY [facility] PRN Reason: Taper Stop: 12/13/16 11:59 Last Admin: 12/12/16 10:31 Dose: 25 mg Enoxaparin Sodium (Lovenox) 40 mg SC DAILY [facility] Last Admin: 12/12/16 10:31 Dose: 40 mg Folic Acid (Folic Acid) 1 mg PO DAILY [facility] Last Admin: 12/12/16 10:30 Dose: 1 mg Guaifenesin (Mucinex La) 600 mg PO Q12 [facility] Last Admin: 12/12/16 10:30 Dose: 600 mg Moxifloxacin HCl (Avelox Iv 400mg/250ml Ns) 400 mg in 250 mls @ 167 mls/hr IVPB Q24H [facility] Last Admin: 12/11/16 22:12 Dose: 167 mls/hr Methylprednisolone (Solu-Medrol) 40 mg IVP Q12 [facility] Last Admin: 12/12/16 10:34 Dose: 40 mg Montelukast Sodium (Singulair) 10 mg PO HS [facility] Last Admin: 12/11/16 22:11 Dose: 10 mg Multivitamins (Hexavitamin) 1 tab PO DAILY [facility] Last Admin: 12/12/16 10:30 Dose: 1 tab Pantoprazole Sodium (Protonix Ec Tab) 40 mg PO DAILY [facility] Last Admin: 12/12/16 10:30 Dose: 40 mg Promethazine HCl/Dextromethorphan (Phenergan Dm Syrup) 5 ml PO Q6H PRN PRN Reason: cough Fluticasone/Salmeterol (Advair Diskus 250/50) 1 puff INH RQ12 [facility] Last Admin: 12/12/16 10:13 Dose: 1 puff Temazepam (Restoril) 15 mg PO HS PRN PRN Reason: Sleep Last Admin: 12/11/16 22:14 Dose: 15 mg Thiamine HCl (Vitamin B1 Tab) 100 mg PO DAILY [facility] Last Admin: 12/12/16 10:30 Dose: 100 mg Tiotropium [place] (Spiriva) 18 mcg INH RQD [facility] Last Admin: 12/12/16 10:12 Dose: 18 mcg - Labs Labs: 12/12/16 08:09 12/12/16 08:09 PT 13.2 SECONDS (9.7-12.2) H 12/08/16 16:12 INR 1.2 12/08/16 16:12 APTT 31 SECONDS (21-34) 12/08/16 16:12 Attending/Attestation - Attestation I have personally seen and examined this patient.: Yes I have fully participated in the care of the patient.: Yes I have reviewed all pertinent clinical information, including history, physical exam and plan: Yes Notes (Text): 12/12/16 15:15 case seen and discussed with staff admited with copd and getting treatment s/p chest x ray with some improvement
[2016-12-12 10:07] LABS: MYELOCYTE 10 % (0-0); TOTAL CELLS COUNTED 100
[2016-12-12 10:08] LABS: NEUTROPHIL 63 % (50-75)
[2016-12-12] MEDS: Tiotropium 18 mcg Cap For Inhalation INH SCH (10:12)
[2016-12-12] MEDS: Fluticasone-Salmeterol 250-50mcg Diskus INH SCH ×2 (10:13→19:26)
[2016-12-12] MEDS: guaiFENesin 600 mg ER Tab PO SCH ×2 (10:30→22:38)
[2016-12-12] MEDS: Pantoprazole 40 mg EC Tab PO SCH (10:30)
[2016-12-12] MEDS: Multiple Vitamins Tab PO SCH (10:30)
[2016-12-12] MEDS: Enoxaparin 40 mg Syringe SC SCH (10:31)
[2016-12-12] MEDS: Moxifloxacin IV 400mg/250ml NS 400 MG/250 ML BAG IVPB SCH (22:37)
[2016-12-13] MEDS: Albuterol-Ipratrop 3 mg / 0.5 (3 ml) UD INH SCH ×4 (01:15→20:12)
[2016-12-13 07:30] LABS: BASO % 0.1 % (0.0-2.0); EOS % 0.1 % (0.0-4.0); HEMATOCRIT 36.6 % (35.0-51.0); LYMPH # 2.2 K/uL (1.0-4.3); LYMPH % 7.5 % (20.0-40.0); MEAN CELL VOLUME 93.7 fL (80.0-94.0); MEAN CORPUSCULAR HEMOGLOBIN 30.8 pg (27.0-31.0); MEAN CORPUSCULAR HGB CONC 32.9 g/dL (33.0-37.0); MEAN PLATELET VOLUME 8.1 fL (7.2-11.7); MONO # 1.2 K/uL (0.0-0.8); MONO % 4.1 % (0.0-10.0); NRBC % 0.2 % (0.0-2.0); PLATELET COUNT 417 K/uL (130-400); RED CELL DISTRIBUTION WIDTH 14.2 % (11.5-14.5); WHITE BLOOD COUNT 30.1 K/uL (4.8-10.8)
[2016-12-13 08:00] LABS: CHLORIDE 96 mmol/L (98-107); POTASSIUM 4.1 mmol/L (3.6-5.2); SODIUM 137 mmol/L (132-148)
[2016-12-13 08:02] LABS: ALB/GLOB RATIO 1.3 (1.0-2.1); AST/SGOT 40 U/L (17-59); BILIRUBIN,TOTAL 0.5 mg/dL (0.2-1.3); BLOOD UREA NITROGEN 20 mg/dL (9-20); CARBON DIOXIDE 28 mmol/L (22-30); GFR AFRICAN-AMERICAN > 60; TOTAL PROTEIN 7.3 g/dL (6.3-8.3)
[2016-12-13 08:03] LABS: ALKALINE PHOSPHATASE 64 U/L (38-126); ALT/SGPT 60 U/L (21-72); CALCIUM 9.2 mg/dl (8.6-10.4); GLUCOSE,RANDOM 145 mg/dL (75-110)
[2016-12-13] MEDS: Tiotropium 18 mcg Cap For Inhalation INH SCH (08:10)
[2016-12-13] MEDS: Fluticasone-Salmeterol 250-50mcg Diskus INH SCH ×2 (08:10→20:12)
[2016-12-13] MEDS: MethylPREDNISolone 40 mg Vial IVP SCH ×2 (09:07→21:18)
[2016-12-13] MEDS: guaiFENesin 600 mg ER Tab PO SCH ×2 (09:08→21:18)
[2016-12-13] MEDS: Pantoprazole 40 mg EC Tab PO SCH (09:08)
[2016-12-13] MEDS: Enoxaparin 40 mg Syringe SC SCH (09:08)
[2016-12-13] MEDS: Multiple Vitamins Tab PO SCH (09:13)
[2016-12-13 09:20] LABS: METAMYELOCYTE 6 % (0-0); MYELOCYTE 4 % (0-0); NEUTROPHIL 71 % (50-75); TOTAL CELLS COUNTED 100
[2016-12-13 09:21] LABS: LARGE PLATELETS PRESENT
--- NOTE | 2016-12-13 12:54 | CP.PCM.PN ---
Subjective - Date & Time of Evaluation Date of Evaluation: 12/13/16 Time of Evaluation: 09:00 - Subjective Subjective: clinically same Objective - Vital Signs/Intake and Output Vital Signs (last 24 hours): Temp Pulse Resp BP Pulse Ox 97.6 F 90 20 132/86 97 12/13/16 07:20 12/13/16 07:20 12/13/16 07:20 12/13/16 07:20 12/13/16 07:20 Intake and Output: 12/13/16 12/13/16 06:59 18:59 Intake Total 150 Balance 150 - Medications Medications: Current Medications Albuterol/Ipratropium (Duoneb 3 Mg/0.5 Mg (3 Ml) Ud) 3 ml INH RQ6 [facility] Last Admin: 12/13/16 08:10 Dose: 3 ml Enoxaparin Sodium (Lovenox) 40 mg SC DAILY [facility] Last Admin: 12/13/16 09:08 Dose: 40 mg Folic Acid (Folic Acid) 1 mg PO DAILY [facility] Last Admin: 12/13/16 09:08 Dose: 1 mg Guaifenesin (Mucinex La) 600 mg PO Q12 [facility] Last Admin: 12/13/16 09:08 Dose: 600 mg Moxifloxacin HCl (Avelox Iv 400mg/250ml Ns) 400 mg in 250 mls @ 167 mls/hr IVPB Q24H [facility] Last Admin: 12/12/16 22:37 Dose: 167 mls/hr Methylprednisolone (Solu-Medrol) 40 mg IVP Q12 [facility] Last Admin: 12/13/16 09:07 Dose: 40 mg Montelukast Sodium (Singulair) 10 mg PO HS [facility] Last Admin: 12/12/16 22:38 Dose: 10 mg Multivitamins (Hexavitamin) 1 tab PO DAILY [facility] Last Admin: 12/13/16 09:13 Dose: 1 tab Pantoprazole Sodium (Protonix Ec Tab) 40 mg PO DAILY [facility] Last Admin: 12/13/16 09:08 Dose: 40 mg Promethazine HCl/Dextromethorphan (Phenergan Dm Syrup) 5 ml PO Q6H PRN PRN Reason: cough Fluticasone/Salmeterol (Advair Diskus 250/50) 1 puff INH RQ12 [facility] Last Admin: 12/13/16 08:10 Dose: 1 puff Temazepam (Restoril) 15 mg PO HS PRN PRN Reason: Sleep Last Admin: 12/12/16 22:38 Dose: 15 mg Thiamine HCl (Vitamin B1 Tab) 100 mg PO DAILY [facility] Last Admin: 12/13/16 09:07 Dose: 100 mg Tiotropium [place] (Spiriva) 18 mcg INH RQD [facility] Last Admin: 12/13/16 08:10 Dose: 18 mcg - Labs Labs: 12/13/16 07:09 12/13/16 07:09 PT 13.2 SECONDS (9.7-12.2) H 12/08/16 16:12 INR 1.2 12/08/16 16:12 APTT 31 SECONDS (21-34) 12/08/16 16:12 - Constitutional Appears: Well - Head Exam Head Exam: ATRAUMATIC, NORMAL INSPECTION, NORMOCEPHALIC - Eye Exam Eye Exam: EOMI, Normal appearance, PERRL Pupil Exam: NORMAL ACCOMODATION, PERRL - ENT Exam ENT Exam: Mucous Membranes Moist, Normal Exam - Neck Exam Neck Exam: Full ROM, Normal Inspection. absent: Lymphadenopathy - Respiratory Exam Respiratory Exam: Decreased Breath Sounds - Cardiovascular Exam Cardiovascular Exam: REGULAR RHYTHM, +S1, +S2 - GI/Abdominal Exam GI & Abdominal Exam: Soft, Diminished Bowel Sounds - Rectal Exam Rectal Exam: Deferred
[2016-12-13] MEDS: Moxifloxacin IV 400mg/250ml NS 400 MG/250 ML BAG IVPB SCH (21:19)
[2016-12-14] MEDS: Albuterol-Ipratrop 3 mg / 0.5 (3 ml) UD INH SCH (01:27)
[2016-12-14] MEDS: Fluticasone-Salmeterol 250-50mcg Diskus INH SCH ×2 (07:41→20:01)
[2016-12-14] MEDS: Tiotropium 18 mcg Cap For Inhalation INH SCH (07:41)
[2016-12-14] MEDS: Enoxaparin 40 mg Syringe SC SCH (10:32)
[2016-12-14] MEDS: MethylPREDNISolone 40 mg Vial IVP SCH ×2 (10:32→21:18)
[2016-12-14] MEDS: Pantoprazole 40 mg EC Tab PO SCH (10:32)
[2016-12-14] MEDS: guaiFENesin 600 mg ER Tab PO SCH ×2 (10:32→21:18)
[2016-12-14] MEDS: Multiple Vitamins Tab PO SCH (10:32)
--- NOTE | 2016-12-14 14:54 | CP.PCM.PN ---
Objective - Vital Signs/Intake and Output Vital Signs (last 24 hours): Temp Pulse Resp BP Pulse Ox 97.9 F 88 20 144/90 97 12/14/16 07:35 12/14/16 07:35 12/14/16 07:35 12/14/16 07:35 12/14/16 13:01 Intake and Output: 12/14/16 12/14/16 06:59 18:59 Intake Total 200 Balance 200 - Medications Medications: Current Medications Enoxaparin Sodium (Lovenox) 40 mg SC DAILY [facility] Last Admin: 12/14/16 10:32 Dose: 40 mg Folic Acid (Folic Acid) 1 mg PO DAILY [facility] Last Admin: 12/14/16 10:32 Dose: 1 mg Guaifenesin (Mucinex La) 600 mg PO Q12 [facility] Last Admin: 12/14/16 10:32 Dose: 600 mg Moxifloxacin HCl (Avelox Iv 400mg/250ml Ns) 400 mg in 250 mls @ 167 mls/hr IVPB Q24H [facility] Last Admin: 12/13/16 21:19 Dose: 167 mls/hr Methylprednisolone (Solu-Medrol) 40 mg IVP Q12 [facility] Last Admin: 12/14/16 10:32 Dose: 40 mg Montelukast Sodium (Singulair) 10 mg PO HS [facility] Last Admin: 12/13/16 21:18 Dose: 10 mg Multivitamins (Hexavitamin) 1 tab PO DAILY [facility] Last Admin: 12/14/16 10:32 Dose: 1 tab Pantoprazole Sodium (Protonix Ec Tab) 40 mg PO DAILY [facility] Last Admin: 12/14/16 10:32 Dose: 40 mg Promethazine HCl/Dextromethorphan (Phenergan Dm Syrup) 5 ml PO Q6H PRN PRN Reason: cough Fluticasone/Salmeterol (Advair Diskus 250/50) 1 puff INH RQ12 [facility] Last Admin: 12/14/16 07:41 Dose: 1 puff Temazepam (Restoril) 15 mg PO HS PRN PRN Reason: Sleep Last Admin: 12/13/16 21:18 Dose: 15 mg Thiamine HCl (Vitamin B1 Tab) 100 mg PO DAILY [facility] Last Admin: 12/14/16 10:33 Dose: 100 mg Tiotropium [place] (Spiriva) 18 mcg INH RQD [facility] Last Admin: 05/21/17 07:41 Dose: 18 mcg - Labs Labs: 12/13/16 07:09 12/13/16 07:09 PT 13.2 SECONDS (9.7-12.2) H 12/08/16 16:12 INR 1.2 12/08/16 16:12 APTT 31 SECONDS (21-34) 12/08/16 16:12
--- NOTE | 2016-12-14 15:08 | CP.PCM.CON ---
History of Present Illness - History of Present Illness History of Present Illness: 56-year-old male, PMHx includes COPD, presents to the emergency department with complaints of shortness of breath, non-productive cough and wheezing for the past three days. Patient states that symptoms worsened over the weekend. Patient admits to pleuritic chest pain associated with the cough. He denies fever, leg swelling, abdominal pain, nausea/vomiting, palpitations. REFERRED FOR HIGH WBC DENIES CHILLS + COUGH AND SOB WITH EXERTION - Medical History PMH: Back Problems, COPD, Depression, Emphysema, Pneumonia, Sleep Apnea Review of Systems - Constitutional Constitutional: As Per HPI, Anorexia, Malaise. absent: Chills - EENT Eyes: absent: As Per HPI, Blind Spots, Blurred Vision, Change in Vision, Decreased Night Vision, Diplopia, Discharge, Dry Eye, Exophthalmos, Floaters, Irritation, Itchy Eyes, Loss of Peripheral Vision, Pain, Photophobia, Requires Corrective Lenses, Sees Flashes, Spots in Vision, Tunnel Vision, Other Visual Disturbances, Loss of Vision, Other Ears: absent: As Per HPI, Decreased Hearing, Ear Discharge, Ear Pain, Tinnitus, Abnormal Hearing, Disequilibrium, Dizziness, Other Nose/Mouth/Throat: absent: As Per HPI, Epistaxis, Nasal Congestion, Nasal Discharge, Nasal Obstruction, Nasal Trauma, Nose Pain, Post Nasal Drip, Sinus Pain, Sinus Pressure, Bleeding Gums, Change in Voice, Dental Pain, Dry Mouth, Dysphagia, Halitosis, Hoarsness, Lip Swelling, Mouth Lesions, Mouth Pain, Odynophagia, Sore Throat, Throat Swelling, Tongue Swelling, Facial Pain, Neck Pain, Neck Mass, Other - Cardiovascular Cardiovascular: absent: As Per HPI, Acrocyanosis, Chest Pain, Chest Pain at Rest , Chest Pain with Activity, Claudication, Diaphoresis, Dyspnea, Dyspnea on Exertion, Edema, Irregular Heart Rhythm, Pain Radiating to Arm/Neck/Jaw, Leg Edema, Leg Ulcers, Lightheadedness, Orthopnea, Palpitations, Paroxysmal Nocturnal Dyspnea, Pedal Edema, Radiating Pain, Rapid Heart Rate, Slow Heart Rate, Syncope, Other - Respiratory Respiratory: As Per HPI, Cough, Dyspnea. absent: Hemoptysis - Gastrointestinal Gastrointestinal: absent: As Per HPI, Abdominal Pain, Belching, Bloating, Change in Bowel Habits, Change in Stool Character, Coffee Ground Emesis, Constipation, Cramping, Diarrhea, Dyspepsia, Dysphagia, Early Satiety, Excessive Flatus, Fecal Incontinence, Heartburn, Hematemesis, Hematochezia, Loose Stools, Melena, Nausea, Odynophagia, Temesmus, Vomiting, Other - Genitourinary Genitourinary: absent: As Per HPI, Change in Urinary Stream, Difficulty Urinating, Dysuria, Flank Pain, Hematuria, Pyuria, Nocturia, Urinary Incontinence, Urinary Frequency, Urinary Hesitance, Urinary Urgency, Voiding Freq/Small Amts, Freq UTI, Hx Renal/Bladder Calculi, Hx /Renal Surgery, Bladder Distension, Other - Musculoskeletal Musculoskeletal: absent: As Per HPI, Abnormal Gait, Arthralgias, Atrophy, Back Pain, Deformity, Joint Swelling, Limited Range of Motion, Loss of Height, Muscle Cramps, Muscle Weakness, Myalgias, Neck Pain, Numbness, Radiating Pain into Limb, Stiffness, Tingling, Other - Integumentary Integumentary: absent: As Per HPI, Acne, Alopecia, Bleeding Lesions, Change in Hair, Change in Nails, Change in Pigmentation, Changing Lesions, Dry Skin, Erythema, Furuncle, Hirsutism, Lesions, New Lesions, Non-Healing Lesions, Photosensitivity, Pruritus, Rash, Skin Pain, Skin Ulcer, Sores, Striae, Swelling , Unusual Bruising, Wounds, Jaundice, Other - Neurological Neurological: absent: As Per HPI, Abnormal Gait, Abnormal Hearing, Abnormal Movements, Abnormal Speech, Behavioral Changes, Burning Sensations, Confusion, Convulsions, Disequilibrium, Dizziness, Numbness, Focal Weakness, Frequent Falls , Headaches, Lack of Coordination, Loss of Vision, Memory Loss, Paresthesias, Radicular Pain, Restless Legs, Sensory Deficit, Syncope, Tingling, Tremor, Vertigo, Weakness, Other Visual Disturbances, Other - Psychiatric Psychiatric: absent: As Per HPI, Abnormal Sleep Pattern, Anhedonia, Anxiety, Auditory Hallucinations, Behavioral Changes, Change in Appetite, Change in Libido, Confusion, Depression, Difficulty Concentrating, Hallucinations, Homicidal Ideation, Hopelessness, Irritability, Memory Loss, Mood Swings, Panic Attacks, Paranoia, Suicidal Ideation, Visual Hallucinations, Tactile Hallucinations, Other - Endocrine Endocrine: absent: As Per HPI, Change in Body Appearance, Change in Libido, Cold Intolorance, Deepening of Voice, Excessive Sweating, Fatigue, Flushing, Heat Intolorance, Increase in Ring/Shoe/Hat Size, Palpitations, Polydipsia, Polyphagia, Polyuria, Other - Hematologic/Lymphatic Hematologic: absent: As Per HPI, Easy Bleeding, Easy Bruising, Lymphadenopathy, Other Past Patient History - Infectious Disease Hx of Infectious Diseases: None - Tetanus Immunizations Tetanus Immunization: Unknown - Past Medical History & Family History Past Medical History?: Yes - Past Social History Smoking Status: Light Smoker < 10 Cigarettes Daily - CARDIAC Hx Hypertension: No - PULMONARY Hx Chronic Obstructive Pulmonary Disease (COPD): Yes Hx Emphysema: Yes Hx Pneumonia: Yes Hx Sleep Apnea: Yes - NEUROLOGICAL Hx Seizures: No - HEENT Hx HEENT Problems: No - RENAL Hx Chronic Kidney Disease: No - ENDOCRINE/METABOLIC Hx Endocrine Disorders: No - HEMATOLOGICAL/ONCOLOGICAL Hx Human Immunodeficiency Virus (HIV): No - INTEGUMENTARY Hx Dermatological Problems: No - MUSCULOSKELETAL/RHEUMATOLOGICAL Hx Falls: No - GASTROINTESTINAL Hx Gastrointestinal Disorders: No - GENITOURINARY/GYNECOLOGICAL Hx Sexually Transmitted Disorders: No - PSYCHIATRIC Hx Depression: Yes Hx Substance Use: Yes (heroin use) - SURGICAL HISTORY Hx Surgeries: No - ANESTHESIA Hx Anesthesia: No Meds Allergies/Adverse Reactions: Allergies Allergy/AdvReac Type Severity Reaction Status Date / Time No Known Allergies Allergy Verified 12/08/16 14:59 - Medications Medications: Current Medications Enoxaparin Sodium (Lovenox) 40 mg SC DAILY [facility] Last Admin: 12/14/16 10:32 Dose: 40 mg Folic Acid (Folic Acid) 1 mg PO DAILY [facility] Last Admin: 12/14/16 10:32 Dose: 1 mg Guaifenesin (Mucinex La) 600 mg PO Q12 [facility] Last Admin: 12/14/16 10:32 Dose: 600 mg Moxifloxacin HCl (Avelox Iv 400mg/250ml Ns) 400 mg in 250 mls @ 167 mls/hr IVPB Q24H [facility] Last Admin: 12/13/16 21:19 Dose: 167 mls/hr Methylprednisolone (Solu-Medrol) 40 mg IVP Q12 [facility] Last Admin: 12/14/16 10:32 Dose: 40 mg Montelukast Sodium (Singulair) 10 mg PO HS [facility] Last Admin: 12/13/16 21:18 Dose: 10 mg Multivitamins (Hexavitamin) 1 tab PO DAILY [facility] Last Admin: 12/14/16 10:32 Dose: 1 tab Pantoprazole Sodium (Protonix Ec Tab) 40 mg PO DAILY [facility] Last Admin: 12/14/16 10:32 Dose: 40 mg Promethazine HCl/Dextromethorphan (Phenergan Dm Syrup) 5 ml PO Q6H PRN PRN Reason: cough Fluticasone/Salmeterol (Advair Diskus 250/50) 1 puff INH RQ12 [facility] Last Admin: 12/14/16 07:41 Dose: 1 puff Temazepam (Restoril) 15 mg PO HS PRN PRN Reason: Sleep Last Admin: 12/13/16 21:18 Dose: 15 mg Thiamine HCl (Vitamin B1 Tab) 100 mg PO DAILY [facility] Last Admin: 12/14/16 10:33 Dose: 100 mg Tiotropium [place] (Spiriva) 18 mcg INH RQD [facility] Last Admin: 12/14/16 07:41 Dose: 18 mcg Physical Exam - Constitutional Appears: Non-toxic, Chronically Ill - Head Exam Head Exam: ATRAUMATIC, NORMAL INSPECTION, NORMOCEPHALIC - Eye Exam Eye Exam: EOMI, PERRL. absent: Scleral icterus - ENT Exam ENT Exam: Mucous Membranes Dry, Normal External Ear Exam, Normal Oropharynx - Neck Exam Neck exam: Negative for: Lymphadenopathy, Thyromegaly - Respiratory Exam Respiratory Exam: Decreased Breath Sounds, Prolonged Expiratory Phase, Rhonchi, Wheezes - Cardiovascular Exam Cardiovascular Exam: REGULAR RHYTHM, +S1 - GI/Abdominal Exam GI & Abdominal Exam: Diminished Bowel Sounds, Distended, Soft. absent: Guarding , Hernia, Rebound, Rigid, Tenderness - Rectal Exam Rectal Exam: Deferred - Exam Exam: NORMAL INSPECTION - Extremities Exam Extremities exam: Positive for: pedal pulses present. Negative for: calf tenderness, pedal edema, tenderness - Back Exam Back exam: absent: CVA tenderness (L), CVA tenderness (R), paraspinal tenderness - Neurological Exam Neurological exam: Alert, CN II-XII Intact, Oriented x3, Reflexes Normal - Psychiatric Exam Psychiatric exam: Normal Mood - Skin Skin Exam: Dry Results - Vital Signs Recent Vital Signs: Last Vital Signs Temp 97.9 F 12/14/16 07:35 Pulse 88 12/14/16 07:35 Resp 20 12/14/16 07:35 BP 144/90 12/14/16 07:35 Pulse Ox 97 12/14/16 13:01 - Labs Result Diagrams: 12/13/16 07:09 12/13/16 07:09 Assessment & Plan (1) Alcohol dependence Status: Acute (2) COPD (chronic obstructive pulmonary disease) Status: Acute (3) Pneumonia Status: Acute - Assessment and Plan (Free Text) Assessment: LEUKOCYTOSIS LIKELY SECONDARY TO STRESS/ INFECTION CONSIDER CT CHEST WILL SEND PROCALCITONIN LEVELS
[2016-12-14 19:46] LABS: BASO # 0.1 K/uL (0.0-0.2); BASO % 0.2 % (0.0-2.0); HEMATOCRIT 37.3 % (35.0-51.0); LYMPH # 2.2 K/uL (1.0-4.3); LYMPH % 8.8 % (20.0-40.0); MEAN CORPUSCULAR HEMOGLOBIN 30.7 pg (27.0-31.0); MEAN CORPUSCULAR HGB CONC 32.6 g/dL (33.0-37.0); MEAN PLATELET VOLUME 7.9 fL (7.2-11.7); MONO # 1.4 K/uL (0.0-0.8); MONO % 5.5 % (0.0-10.0); NRBC % 0.2 % (0.0-2.0); PLATELET COUNT 396 K/uL (130-400); RED CELL DISTRIBUTION WIDTH 14.9 % (11.5-14.5); WHITE BLOOD COUNT 25.3 K/uL (4.8-10.8)
[2016-12-14 19:52] LABS: CHLORIDE 94 mmol/L (98-107)
[2016-12-14 19:53] LABS: POTASSIUM 4.3 mmol/L (3.6-5.2); SODIUM 134 mmol/L (132-148)
[2016-12-14 19:55] LABS: ALB/GLOB RATIO 1.4 (1.0-2.1); AST/SGOT 54 U/L (17-59); BILIRUBIN,TOTAL 0.5 mg/dL (0.2-1.3); CARBON DIOXIDE 28 mmol/L (22-30); GFR AFRICAN-AMERICAN > 60; TOTAL PROTEIN 7.1 g/dL (6.3-8.3)
[2016-12-14 19:56] LABS: ALKALINE PHOSPHATASE 60 U/L (38-126); ALT/SGPT 97 U/L (21-72); BLOOD UREA NITROGEN 23 mg/dL (9-20); CALCIUM 8.7 mg/dl (8.6-10.4); GLUCOSE,RANDOM 121 mg/dL (75-110)
[2016-12-14 20:22] LABS: LARGE PLATELETS PRESENT; NEUTROPHIL 81 % (50-75); TOTAL CELLS COUNTED 100
[2016-12-14] MEDS: Moxifloxacin IV 400mg/250ml NS 400 MG/250 ML BAG IVPB SCH (21:18)
[2016-12-15] MEDS: Fluticasone-Salmeterol 250-50mcg Diskus INH SCH (09:09)
[2016-12-15] MEDS: Tiotropium 18 mcg Cap For Inhalation INH SCH (09:10)
--- NOTE | 2016-12-15 09:36 | CP.PCM.PN ---
<Jimi Cerda - Last Filed: 12/15/16 12:32> Subjective - Date & Time of Evaluation Date of Evaluation: 12/15/16 Time of Evaluation: 09:00 - Subjective Subjective: PGY2 on medicine Dr. Zapata service: Pt seen and examined at bedside this morning. Pt reports breathing better but productive persisted. No other complaints at the moment. Objective - Vital Signs/Intake and Output Vital Signs (last 24 hours): Temp Pulse Resp BP Pulse Ox 97.3 F L 86 18 141/91 H 90 L 12/15/16 07:40 12/15/16 07:40 12/15/16 07:40 12/15/16 07:40 12/15/16 07:40 - Medications Medications: Current Medications Enoxaparin Sodium (Lovenox) 40 mg SC DAILY [facility] Last Admin: 12/14/16 10:32 Dose: 40 mg Folic Acid (Folic Acid) 1 mg PO DAILY [facility] Last Admin: 12/14/16 10:32 Dose: 1 mg Guaifenesin (Mucinex La) 600 mg PO Q12 [facility] Last Admin: 12/14/16 21:18 Dose: 600 mg Ceftriaxone Sodium 1 gm/ (Sodium Chloride) 100 mls @ 100 mls/hr IVPB Q12H [facility] Last Admin: 12/15/16 02:32 Dose: 100 mls/hr Methylprednisolone (Solu-Medrol) 40 mg IVP Q12 [facility] Last Admin: 12/14/16 21:18 Dose: 40 mg Montelukast Sodium (Singulair) 10 mg PO HS [facility] Last Admin: 12/14/16 21:17 Dose: 10 mg Multivitamins (Hexavitamin) 1 tab PO DAILY [facility] Last Admin: 12/14/16 10:32 Dose: 1 tab Pantoprazole Sodium (Protonix Ec Tab) 40 mg PO DAILY [facility] Last Admin: 12/14/16 10:32 Dose: 40 mg Promethazine HCl/Dextromethorphan (Phenergan Dm Syrup) 5 ml PO Q6H PRN PRN Reason: cough Fluticasone/Salmeterol (Advair Diskus 250/50) 1 puff INH RQ12 [facility] Last Admin: 12/15/16 09:09 Dose: 1 puff Temazepam (Restoril) 15 mg PO HS PRN PRN Reason: Sleep Last Admin: 12/14/16 21:17 Dose: 15 mg Thiamine HCl (Vitamin B1 Tab) 100 mg PO DAILY [facility] Last Admin: 12/14/16 10:33 Dose: 100 mg Tiotropium [place] (Spiriva) 18 mcg INH RQD [facility] Last Admin: 12/15/16 09:10 Dose: 18 mcg - Labs Labs: 12/14/16 19:37 12/14/16 19:37 PT 13.2 SECONDS (9.7-12.2) H 12/08/16 16:12 INR 1.2 12/08/16 16:12 APTT 31 SECONDS (21-34) 12/08/16 16:12 - Constitutional Appears: Non-toxic, No Acute Distress - Head Exam Head Exam: NORMOCEPHALIC - Eye Exam Eye Exam: Normal appearance Pupil Exam: NORMAL ACCOMODATION - Respiratory Exam Respiratory Exam: Wheezes (expiratory), NORMAL BREATHING PATTERN - Cardiovascular Exam Cardiovascular Exam: REGULAR RHYTHM, +S1, +S2. absent: Gallop, Rubs - GI/Abdominal Exam GI & Abdominal Exam: Soft, Normal Bowel Sounds - Extremities Exam Extremities Exam: absent: Pedal Edema - Neurological Exam Neurological Exam: Alert, Awake, Oriented x3 - Psychiatric Exam Psychiatric exam: Normal Mood - Skin Skin Exam: Dry, Intact Assessment and Plan - Assessment and Plan (Free Text) Assessment: 1. Pneumonia WBC 23.6, afebrile Negative blood culture, sputum culture (yeast species) Negative legionella, mycoplasma, procalcitonin Dr. Holt consulted, help appreciated. Duonebs 3ml INH q6h [facility] Solumedrol 40mg IV q12h Mucinex 600mg PO q12h CXR- bilateral infiltrates Advair 1 puff INH q12h Avelox 400mg IV daily completed for 7 days Rocephin started 12/05 F/U chest CT per Dr. Holt 2. COPD Card Table Attendant consulted Dr Romulo Delaney 10mg pO HS Duonebs 3ml INH q6h [facility] Spiriva 18mcg INH daily 3. Prophylactic measures Lovenox 40mg SC daily Protonix 40mg PO daily [facility] <Caryn Zapata - Last Filed: 12/15/16 21:20> Objective - Vital Signs/Intake and Output Vital Signs (last 24 hours): Temp Pulse Resp BP Pulse Ox 97.3 F L 91 H 20 149/87 96 12/15/16 15:00 12/15/16 15:00 12/15/16 15:00 12/15/16 15:00 12/15/16 15:00 - Medications Medications: Current Medications Enoxaparin Sodium (Lovenox) 40 mg SC DAILY [facility] Last Admin: 12/15/16 10:25 Dose: 40 mg Folic Acid (Folic Acid) 1 mg PO DAILY [facility] Last Admin: 12/15/16 10:25 Dose: 1 mg Guaifenesin (Mucinex La) 600 mg PO Q12 [facility] Last Admin: 12/15/16 21:10 Dose: 600 mg Ceftriaxone Sodium 1 gm/ (Sodium Chloride) 100 mls @ 100 mls/hr IVPB Q12H [facility] Last Admin: 12/15/16 14:00 Dose: 100 mls/hr Methylprednisolone (Solu-Medrol) 40 mg IVP Q12 [facility] Last Admin: 12/15/16 21:10 Dose: 40 mg Montelukast Sodium (Singulair) 10 mg PO HS [facility] Last Admin: 12/15/16 21:10 Dose: 10 mg Multivitamins (Hexavitamin) 1 tab PO DAILY [facility] Last Admin: 12/15/16 10:24 Dose: 1 tab Pantoprazole Sodium (Protonix Ec Tab) 40 mg PO DAILY [facility] Last Admin: 12/15/16 10:24 Dose: 40 mg Promethazine HCl/Dextromethorphan (Phenergan Dm Syrup) 5 ml PO Q6H PRN PRN Reason: cough Fluticasone/Salmeterol (Advair Diskus 250/50) 1 puff INH RQ12 [facility] Last Admin: 12/15/16 09:09 Dose: 1 puff Temazepam (Restoril) 15 mg PO HS PRN PRN Reason: Sleep Last Admin: 12/15/16 21:09 Dose: 15 mg Thiamine HCl (Vitamin B1 Tab) 100 mg PO DAILY [facility] Last Admin: 12/14/16 10:33 Dose: 100 mg Tiotropium [place] (Spiriva) 18 mcg INH RQD [facility] Last Admin: 12/15/16 09:10 Dose: 18 mcg - Labs Labs: 12/15/16 11:36 12/15/16 11:36 PT 13.2 SECONDS (9.7-12.2) H 12/08/16 16:12 INR 1.2 12/08/16 16:12 APTT 31 SECONDS (21-34) 12/08/16 16:12 Attending/Attestation - Attestation I have personally seen and examined this patient.: Yes I have fully participated in the care of the patient.: Yes I have reviewed all pertinent clinical information, including history, physical exam and plan: Yes Notes (Text): mulitpler consultation ivantibiotic discharge insturction hallie as ordered
[2016-12-15] MEDS: Pantoprazole 40 mg EC Tab PO SCH (10:24)
[2016-12-15] MEDS: Multiple Vitamins Tab PO SCH (10:24)
[2016-12-15] MEDS: guaiFENesin 600 mg ER Tab PO SCH ×2 (10:25→21:10)
[2016-12-15] MEDS: MethylPREDNISolone 40 mg Vial IVP SCH ×2 (10:25→21:10)
[2016-12-15] MEDS: Enoxaparin 40 mg Syringe SC SCH (10:25)
[2016-12-15 11:51] LABS: BASO # 0.1 K/uL (0.0-0.2); BASO % 0.2 % (0.0-2.0); HEMATOCRIT 35.9 % (35.0-51.0); LYMPH # 2.2 K/uL (1.0-4.3); LYMPH % 9.3 % (20.0-40.0); MEAN CELL VOLUME 94.1 fL (80.0-94.0); MEAN CORPUSCULAR HEMOGLOBIN 30.9 pg (27.0-31.0); MEAN CORPUSCULAR HGB CONC 32.9 g/dL (33.0-37.0); MEAN PLATELET VOLUME 8.2 fL (7.2-11.7); MONO # 1.5 K/uL (0.0-0.8); MONO % 6.5 % (0.0-10.0); NRBC % 0.1 % (0.0-2.0); PLATELET COUNT 346 K/uL (130-400); RED CELL DISTRIBUTION WIDTH 14.3 % (11.5-14.5); WHITE BLOOD COUNT 23.6 K/uL (4.8-10.8)
[2016-12-15 12:16] LABS: CHLORIDE 93 mmol/L (98-107); POTASSIUM 3.9 mmol/L (3.6-5.2); SODIUM 133 mmol/L (132-148)
[2016-12-15 12:18] LABS: AST/SGOT 44 U/L (17-59); BILIRUBIN,TOTAL 0.5 mg/dL (0.2-1.3); CARBON DIOXIDE 24 mmol/L (22-30); GFR AFRICAN-AMERICAN > 60
[2016-12-15 12:19] LABS: ALB/GLOB RATIO 1.3 (1.0-2.1); ALKALINE PHOSPHATASE 59 U/L (38-126); ALT/SGPT 102 U/L (21-72); BLOOD UREA NITROGEN 26 mg/dL (9-20); CALCIUM 8.3 mg/dl (8.6-10.4); GLUCOSE,RANDOM 167 mg/dL (75-110); TOTAL PROTEIN 6.5 g/dL (6.3-8.3)
[2016-12-15 12:42] LABS: MYELOCYTE 2 % (0-0); NEUTROPHIL 75 % (50-75); TOTAL CELLS COUNTED 100
[2016-12-15 12:46] LABS: LARGE PLATELETS PRESENT
--- NOTE | 2016-12-15 13:30 | CP.PCM.PN ---
Subjective - Date & Time of Evaluation Date of Evaluation: 12/15/16 Time of Evaluation: 10:00 - Subjective Subjective: slow progress for ct as per dr jeong Objective - Vital Signs/Intake and Output Vital Signs (last 24 hours): Temp Pulse Resp BP Pulse Ox 97.3 F L 86 18 141/91 H 90 L 12/15/16 07:40 12/15/16 07:40 12/15/16 07:40 12/15/16 07:40 12/15/16 07:40 - Medications Medications: Current Medications Enoxaparin Sodium (Lovenox) 40 mg SC DAILY [facility] Last Admin: 12/15/16 10:25 Dose: 40 mg Folic Acid (Folic Acid) 1 mg PO DAILY [facility] Last Admin: 12/15/16 10:25 Dose: 1 mg Guaifenesin (Mucinex La) 600 mg PO Q12 [facility] Last Admin: 12/15/16 10:25 Dose: 600 mg Ceftriaxone Sodium 1 gm/ (Sodium Chloride) 100 mls @ 100 mls/hr IVPB Q12H [facility] Last Admin: 12/15/16 02:32 Dose: 100 mls/hr Methylprednisolone (Solu-Medrol) 40 mg IVP Q12 [facility] Last Admin: 12/15/16 10:25 Dose: 40 mg Montelukast Sodium (Singulair) 10 mg PO HS [facility] Last Admin: 12/14/16 21:17 Dose: 10 mg Multivitamins (Hexavitamin) 1 tab PO DAILY [facility] Last Admin: 12/15/16 10:24 Dose: 1 tab Pantoprazole Sodium (Protonix Ec Tab) 40 mg PO DAILY [facility] Last Admin: 12/15/16 10:24 Dose: 40 mg Promethazine HCl/Dextromethorphan (Phenergan Dm Syrup) 5 ml PO Q6H PRN PRN Reason: cough Fluticasone/Salmeterol (Advair Diskus 250/50) 1 puff INH RQ12 [facility] Last Admin: 12/15/16 09:09 Dose: 1 puff Temazepam (Restoril) 15 mg PO HS PRN PRN Reason: Sleep Last Admin: 12/14/16 21:17 Dose: 15 mg Thiamine HCl (Vitamin B1 Tab) 100 mg PO DAILY [facility] Last Admin: 12/14/16 10:33 Dose: 100 mg Tiotropium [place] (Spiriva) 18 mcg INH RQD [facility] Last Admin: 12/15/16 09:10 Dose: 18 mcg - Labs Labs: 12/15/16 11:36 12/15/16 11:36 PT 13.2 SECONDS (9.7-12.2) H 12/08/16 16:12 INR 1.2 12/08/16 16:12 APTT 31 SECONDS (21-34) 12/08/16 16:12 Assessment and Plan (1) Alcohol dependence Status: Acute (2) COPD (chronic obstructive pulmonary disease) Status: Acute (3) Pneumonia Status: Acute
[2016-12-15] MEDS ORDERED: Iodixanol 320 MG/ML 100 ML BOTTLE IV ONE (14:45)
--- NOTE | 2016-12-15 17:10 | CT ---
PROCEDURE: CT Chest with contrast HISTORY: inflitrates COMPARISON: COMPARISON IS MADE TO THE PREVIOUS STUDY DATED 10/05/2011 TECHNIQUE: Contiguous axial images were obtained through the chest with intravenous contrast enhancement. Sagittal and coronal reconstructions were performed. IV contrast: 100 cc Visipaque 320 Radiation dose (DLP): 787.6 mGy-cm. This CT exam was performed using one or more of the following dose reduction techniques: Automated exposure control, adjustment of the mA and/or kV according to patient size, and/or use of iterative reconstruction technique. FINDINGS: LUNGS: Linear and focal opacities are seen at the right middle lobe. Otherwise the lungs are clear MEDIASTINUM: Unremarkable thoracic aorta. No aneurysm or dissection. Normal sized heart. Main pulmonary artery unremarkable. No vascular congestion. No lymphadenopathy. PLEURA: No pleural fluid. No pneumothorax. BONES: No fracture. No destructive lesion. UPPER ABDOMEN: No evidence of acute pathology. OTHER FINDINGS: None. IMPRESSION: Focal and linear opacities seen at the right middle lobe may represent a sequela of infection or inflammatory process. The possibility of acute pneumonia is also not totally excluded. Otherwise the lungs are clear.
--- NOTE | 2016-12-15 18:16 | CP.PCM.PN ---
Subjective - Date & Time of Evaluation Date of Evaluation: 12/15/16 Time of Evaluation: 10:00 - Subjective Subjective: clinically same Objective - Vital Signs/Intake and Output Vital Signs (last 24 hours): Temp Pulse Resp BP Pulse Ox 97.3 F L 91 H 20 149/87 96 12/15/16 15:00 12/15/16 15:00 12/15/16 15:00 12/15/16 15:00 12/15/16 15:00 - Medications Medications: Current Medications Enoxaparin Sodium (Lovenox) 40 mg SC DAILY [facility] Last Admin: 12/15/16 10:25 Dose: 40 mg Folic Acid (Folic Acid) 1 mg PO DAILY [facility] Last Admin: 12/15/16 10:25 Dose: 1 mg Guaifenesin (Mucinex La) 600 mg PO Q12 [facility] Last Admin: 12/15/16 10:25 Dose: 600 mg Ceftriaxone Sodium 1 gm/ (Sodium Chloride) 100 mls @ 100 mls/hr IVPB Q12H [facility] Last Admin: 12/15/16 14:00 Dose: 100 mls/hr Methylprednisolone (Solu-Medrol) 40 mg IVP Q12 [facility] Last Admin: 12/15/16 10:25 Dose: 40 mg Montelukast Sodium (Singulair) 10 mg PO HS [facility] Last Admin: 12/14/16 21:17 Dose: 10 mg Multivitamins (Hexavitamin) 1 tab PO DAILY [facility] Last Admin: 12/15/16 10:24 Dose: 1 tab Pantoprazole Sodium (Protonix Ec Tab) 40 mg PO DAILY [facility] Last Admin: 12/15/16 10:24 Dose: 40 mg Promethazine HCl/Dextromethorphan (Phenergan Dm Syrup) 5 ml PO Q6H PRN PRN Reason: cough Fluticasone/Salmeterol (Advair Diskus 250/50) 1 puff INH RQ12 [facility] Last Admin: 12/15/16 09:09 Dose: 1 puff Temazepam (Restoril) 15 mg PO HS PRN PRN Reason: Sleep Last Admin: 12/14/16 21:17 Dose: 15 mg Thiamine HCl (Vitamin B1 Tab) 100 mg PO DAILY [facility] Last Admin: 12/14/16 10:33 Dose: 100 mg Tiotropium [place] (Spiriva) 18 mcg INH RQD [facility] Last Admin: 12/15/16 09:10 Dose: 18 mcg - Labs Labs: 12/15/16 11:36 12/15/16 11:36 PT 13.2 SECONDS (9.7-12.2) H 12/08/16 16:12 INR 1.2 12/08/16 16:12 APTT 31 SECONDS (21-34) 12/08/16 16:12
[2016-12-16 07:30] LABS: BASO % 0.2 % (0.0-2.0); HEMATOCRIT 37.8 % (35.0-51.0); LYMPH # 1.9 K/uL (1.0-4.3); LYMPH % 8.5 % (20.0-40.0); MEAN CELL VOLUME 94.5 fL (80.0-94.0); MEAN CORPUSCULAR HEMOGLOBIN 30.9 pg (27.0-31.0); MEAN CORPUSCULAR HGB CONC 32.7 g/dL (33.0-37.0); MEAN PLATELET VOLUME 8.2 fL (7.2-11.7); MONO # 1.2 K/uL (0.0-0.8); MONO % 5.5 % (0.0-10.0); NRBC % 0.1 % (0.0-2.0); PLATELET COUNT 360 K/uL (130-400); RED CELL DISTRIBUTION WIDTH 14.7 % (11.5-14.5); WHITE BLOOD COUNT 22.4 K/uL (4.8-10.8)
[2016-12-16 07:31] LABS: CHLORIDE 94 mmol/L (98-107); POTASSIUM 4.4 mmol/L (3.6-5.2); SODIUM 132 mmol/L (132-148)
[2016-12-16] MEDS: Fluticasone-Salmeterol 250-50mcg Diskus INH SCH (07:31)
[2016-12-16] MEDS: Tiotropium 18 mcg Cap For Inhalation INH SCH (07:31)
[2016-12-16 07:33] LABS: GFR AFRICAN-AMERICAN > 60
[2016-12-16 07:34] LABS: ALB/GLOB RATIO 1.4 (1.0-2.1); ALKALINE PHOSPHATASE 56 U/L (38-126); ALT/SGPT 109 U/L (21-72); AST/SGOT 43 U/L (17-59); BILIRUBIN,TOTAL 0.5 mg/dL (0.2-1.3); BLOOD UREA NITROGEN 22 mg/dL (9-20); CARBON DIOXIDE 26 mmol/L (22-30); GLUCOSE,RANDOM 138 mg/dL (75-110); TOTAL PROTEIN 6.9 g/dL (6.3-8.3)
[2016-12-16 07:35] LABS: CALCIUM 8.5 mg/dl (8.6-10.4)
[2016-12-16 07:56] VITALS: BP 150/91; PULSE 91; RESP 18; TEMP 97.6; O2SAT 97
[2016-12-16] MEDS: guaiFENesin 600 mg ER Tab PO SCH (09:27)
[2016-12-16] MEDS: MethylPREDNISolone 40 mg Vial IVP SCH (09:27)
[2016-12-16] MEDS: Multiple Vitamins Tab PO SCH (09:28)
[2016-12-16] MEDS: Enoxaparin 40 mg Syringe SC SCH (09:28)
[2016-12-16] MEDS: Pantoprazole 40 mg EC Tab PO SCH (09:29)
[2016-12-16 09:43] LABS: METAMYELOCYTE 4 % (0-0); MYELOCYTE 3 % (0-0); NEUTROPHIL 68 % (50-75); REACTIVE LYMPHOCYTES 1 % (0-0); TOTAL CELLS COUNTED 100
--- NOTE | 2016-12-16 09:44 | CP.PCM.PN ---
Subjective - Date & Time of Evaluation Date of Evaluation: 12/16/16 Time of Evaluation: 09:10 - Subjective Subjective: Medicine Note- Dr. Zapata's service Patient was seen and examined at bedside. Patient reports that he is feeling a lot better than when he first came in, he says he has mild dyspnea when he walks around the hallways. Otherwise no acute complaints. No events overnight, per nursing. Objective - Vital Signs/Intake and Output Vital Signs (last 24 hours): Temp Pulse Resp BP Pulse Ox 97.6 F 91 H 18 150/91 H 97 12/16/16 07:02 12/16/16 07:02 12/16/16 07:02 12/16/16 07:02 12/16/16 07:02 - Medications Medications: Current Medications Enoxaparin Sodium (Lovenox) 40 mg SC DAILY [facility] Last Admin: 12/16/16 09:28 Dose: 40 mg Folic Acid (Folic Acid) 1 mg PO DAILY [facility] Last Admin: 12/16/16 09:27 Dose: 1 mg Guaifenesin (Mucinex La) 600 mg PO Q12 [facility] Last Admin: 12/16/16 09:27 Dose: 600 mg Ceftriaxone Sodium 1 gm/ (Sodium Chloride) 100 mls @ 100 mls/hr IVPB Q12H [facility] Last Admin: 12/16/16 02:35 Dose: 100 mls/hr Methylprednisolone (Solu-Medrol) 40 mg IVP Q12 [facility] Last Admin: 12/16/16 09:27 Dose: 40 mg Montelukast Sodium (Singulair) 10 mg PO HS [facility] Last Admin: 12/15/16 21:10 Dose: 10 mg Multivitamins (Hexavitamin) 1 tab PO DAILY [facility] Last Admin: 12/16/16 09:28 Dose: 1 tab Pantoprazole Sodium (Protonix Ec Tab) 40 mg PO DAILY [facility] Last Admin: 12/16/16 09:29 Dose: 40 mg Promethazine HCl/Dextromethorphan (Phenergan Dm Syrup) 5 ml PO Q6H PRN PRN Reason: cough Fluticasone/Salmeterol (Advair Diskus 250/50) 1 puff INH RQ12 [facility] Last Admin: 12/16/16 07:31 Dose: 1 puff Temazepam (Restoril) 15 mg PO HS PRN PRN Reason: Sleep Last Admin: 12/15/16 21:09 Dose: 15 mg Thiamine HCl (Vitamin B1 Tab) 100 mg PO DAILY [facility] Last Admin: 12/16/16 09:28 Dose: 100 mg Tiotropium [place] (Spiriva) 18 mcg INH RQD [facility] Last Admin: 12/16/16 07:31 Dose: 18 mcg - Labs Labs: 12/16/16 07:08 12/16/16 07:08 PT 13.2 SECONDS (9.7-12.2) H 12/08/16 16:12 INR 1.2 12/08/16 16:12 APTT 31 SECONDS (21-34) 12/08/16 16:12 - Constitutional Appears: Non-toxic, No Acute Distress - Head Exam Head Exam: ATRAUMATIC, NORMAL INSPECTION, NORMOCEPHALIC - Eye Exam Pupil Exam: NORMAL ACCOMODATION - ENT Exam ENT Exam: Mucous Membranes Moist - Respiratory Exam Respiratory Exam: Decreased Breath Sounds, Clear to Ausculation Bilateral, NORMAL BREATHING PATTERN. absent: Prolonged Expiratory Phase, Rales, Rhonchi, Wheezes - Cardiovascular Exam Cardiovascular Exam: REGULAR RHYTHM, +S1, +S2 - GI/Abdominal Exam GI & Abdominal Exam: Soft, Normal Bowel Sounds. absent: Tenderness, Diminished Bowel Sounds, Hernia, Hypoactive Bowel Sounds - Extremities Exam Extremities Exam: Normal Capillary Refill, Normal Inspection - Neurological Exam Neurological Exam: Alert, Awake, Oriented x3 - Psychiatric Exam Psychiatric exam: Normal Affect, Normal Mood - Skin Skin Exam: Dry, Intact, Normal Color, Warm Assessment and Plan - Assessment and Plan (Free Text) Assessment: 1. Pneumonia WBC 23.6, afebrile Negative blood culture, sputum culture (yeast species) Negative legionella, mycoplasma, procalcitonin Dr. Holt consulted, help appreciated. Duonebs 3ml INH q6h [facility] Solumedrol 40mg IV q12h Mucinex 600mg PO q12h CXR- bilateral infiltrates Advair 1 puff INH q12h Avelox 400mg IV daily completed for 7 days Rocephin started 12/[address]- Focal linear opacities at the right middle lobe may represent a sequela of infection or inflammatory process. The possibility of acute pneumonia is also not totally excluded. 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 Prophylactic measures Lovenox 40mg SC daily Protonix 40mg PO daily [facility] All medical management as per Dr. Zapata. patient is to be discharged home, as per Dr. Zapata
[2016-12-16 09:49] LABS: LARGE PLATELETS PRESENT
--- NOTE | 2016-12-16 12:08 | CP.PCM.PN ---
Subjective - Date & Time of Evaluation Date of Evaluation: 12/16/16 Time of Evaluation: 09:00 - Subjective Subjective: iv rx in progress wbc coming down on [place] lema Objective - Vital Signs/Intake and Output Vital Signs (last 24 hours): Temp Pulse Resp BP Pulse Ox 97.6 F 91 H 18 150/91 H 97 12/16/16 07:02 12/16/16 07:02 12/16/16 07:02 12/16/16 07:02 12/16/16 07:02 - Medications Medications: Current Medications Enoxaparin Sodium (Lovenox) 40 mg SC DAILY [facility] Last Admin: 12/16/16 09:28 Dose: 40 mg Folic Acid (Folic Acid) 1 mg PO DAILY [facility] Last Admin: 12/16/16 09:27 Dose: 1 mg Guaifenesin (Mucinex La) 600 mg PO Q12 [facility] Last Admin: 12/16/16 09:27 Dose: 600 mg Ceftriaxone Sodium 1 gm/ (Sodium Chloride) 100 mls @ 100 mls/hr IVPB Q12H [facility] Last Admin: 12/16/16 02:35 Dose: 100 mls/hr Methylprednisolone (Solu-Medrol) 40 mg IVP Q12 [facility] Last Admin: 12/16/16 09:27 Dose: 40 mg Montelukast Sodium (Singulair) 10 mg PO HS [facility] Last Admin: 12/15/16 21:10 Dose: 10 mg Multivitamins (Hexavitamin) 1 tab PO DAILY [facility] Last Admin: 12/16/16 09:28 Dose: 1 tab Pantoprazole Sodium (Protonix Ec Tab) 40 mg PO DAILY [facility] Last Admin: 12/16/16 09:29 Dose: 40 mg Promethazine HCl/Dextromethorphan (Phenergan Dm Syrup) 5 ml PO Q6H PRN PRN Reason: cough Fluticasone/Salmeterol (Advair Diskus 250/50) 1 puff INH RQ12 [facility] Last Admin: 12/16/16 07:31 Dose: 1 puff Temazepam (Restoril) 15 mg PO HS PRN PRN Reason: Sleep Last Admin: 12/15/16 21:09 Dose: 15 mg Thiamine HCl (Vitamin B1 Tab) 100 mg PO DAILY [facility] Last Admin: 12/16/16 09:28 Dose: 100 mg Tiotropium [place] (Spiriva) 18 mcg INH RQD [facility] Last Admin: 12/16/16 07:31 Dose: 18 mcg - Labs Labs: 12/16/16 07:08 12/16/16 07:08 PT 13.2 SECONDS (9.7-12.2) H 12/08/16 16:12 INR 1.2 12/08/16 16:12 APTT 31 SECONDS (21-34) 12/08/16 16:12 Assessment and Plan (1) Alcohol dependence Status: Acute (2) COPD (chronic obstructive pulmonary disease) Status: Acute (3) Pneumonia Status: Acute
--- NOTE | 2016-12-16 12:14 | CP.PCM.PN ---
Subjective - Date & Time of Evaluation Date of Evaluation: 12/16/16 Time of Evaluation: 08:20 - Subjective Subjective: Patient seen and examined. Condition much improved but still complaining of slight cough and shortness of breath Afebrile Being treated for pneumonia and COPD Stable from pulmonary standpoint Objective - Vital Signs/Intake and Output Vital Signs (last 24 hours): Temp Pulse Resp BP Pulse Ox 97.6 F 91 H 18 150/91 H 97 12/16/16 07:02 12/16/16 07:02 12/16/16 07:02 12/16/16 07:02 12/16/16 07:02 - Medications Medications: Current Medications Enoxaparin Sodium (Lovenox) 40 mg SC DAILY [facility] Last Admin: 12/16/16 09:28 Dose: 40 mg Folic Acid (Folic Acid) 1 mg PO DAILY [facility] Last Admin: 12/16/16 09:27 Dose: 1 mg Guaifenesin (Mucinex La) 600 mg PO Q12 [facility] Last Admin: 12/16/16 09:27 Dose: 600 mg Ceftriaxone Sodium 1 gm/ (Sodium Chloride) 100 mls @ 100 mls/hr IVPB Q12H [facility] Last Admin: 12/16/16 02:35 Dose: 100 mls/hr Methylprednisolone (Solu-Medrol) 40 mg IVP Q12 [facility] Last Admin: 12/16/16 09:27 Dose: 40 mg Montelukast Sodium (Singulair) 10 mg PO HS [facility] Last Admin: 12/15/16 21:10 Dose: 10 mg Multivitamins (Hexavitamin) 1 tab PO DAILY [facility] Last Admin: 12/16/16 09:28 Dose: 1 tab Pantoprazole Sodium (Protonix Ec Tab) 40 mg PO DAILY [facility] Last Admin: 12/16/16 09:29 Dose: 40 mg Promethazine HCl/Dextromethorphan (Phenergan Dm Syrup) 5 ml PO Q6H PRN PRN Reason: cough Fluticasone/Salmeterol (Advair Diskus 250/50) 1 puff INH RQ12 [facility] Last Admin: 12/16/16 07:31 Dose: 1 puff Temazepam (Restoril) 15 mg PO HS PRN PRN Reason: Sleep Last Admin: 12/15/16 21:09 Dose: 15 mg Thiamine HCl (Vitamin B1 Tab) 100 mg PO DAILY [facility] Last Admin: 12/16/16 09:28 Dose: 100 mg Tiotropium [place] (Spiriva) 18 mcg INH RQD [facility] Last Admin: 12/16/16 07:31 Dose: 18 mcg - Labs Labs: 12/16/16 07:08 12/16/16 07:08 PT 13.2 SECONDS (9.7-12.2) H 12/08/16 16:12 INR 1.2 12/08/16 16:12 APTT 31 SECONDS (21-34) 12/08/16 16:12 Assessment and Plan (1) COPD exacerbation Status: Acute
[2016-12-16] MEDS ORDERED: Pneumococcal 23-Valent Vaccine IM ONE (14:35)
== END 2016-12-16 15:45 | disposition home or self-care (01) | DRG 541 ==
LOC: C.ER 14:51 → C.6T 17:51 → C.3T 12-16 12:14
PROVIDERS: ADMIT Internal Medicine Nephrology; ATTEND Internal Medicine Nephrology
DX: J44.0 Chronic obstructive pulmonary disease with (acute) lower respiratory infection (principal); J18.9 Pneumonia, unspecified organism; F11.20 Opioid dependence, uncomplicated; F10.239 Alcohol dependence with withdrawal, unspecified; J44.1 Chronic obstructive pulmonary disease with (acute) exacerbation; F17.200 Nicotine dependence, unspecified, uncomplicated; G47.30 Sleep apnea, unspecified

== ENCOUNTER 2017-07-25 19:34 | Inpatient (IN) | payer OTHER ==
[2017-07-25 19:34] VITALS: BMI 27.6
--- NOTE | 2017-07-25 20:01 | C.PDOC ---
History Of Present Illness 56 year old male with PMHx of COPD presents to the ED c/o SOB. Patient is speaking 2-3 word sentences, he reports still smoking. Patient denies fever, chills, nausea, vomit, CP. Time Seen by Provider: 07/25/17 20:01 Chief Complaint (Nursing): Respiratory Distress History Per: Patient History/Exam Limitations: no limitations Onset/Duration Of Symptoms: Hrs Current Symptoms Are (Timing): Still Present Initiating Event: Upper Respiratory Illness Severity: None Recent travel outside of the [place]: No Additional History Per: Patient Past Medical History Reviewed: Historical Data, Nursing Documentation, Vital Signs Vital Signs: Last Vital Signs Temp 97.6 F 07/25/17 19:38 Pulse 88 07/25/17 20:40 Resp 30 H 07/25/17 19:58 BP 146/84 07/25/17 19:38 Pulse Ox 90 L 07/25/17 21:22 - Medical History PMH: Back Problems, COPD, Depression, Emphysema, Pneumonia, Sleep Apnea Denies: Diabetes, Hepatitis, HIV, HTN, Seizures, Sexually Transmitted Disease Surgical History: No Surg Hx - [facility] Procedures ALCOHOL DETOXIFICATION (04/06/15) DETOXIFICATION SERVICES FOR SUBSTANCE ABUSE TREATMENT (02/23/17) GROUP PSYCHOTHERAPY (03/31/17) INDIVID PSYCHOTHERAP NEC (02/12/15) INDIVIDUAL PSYCHOTHERAPY, SUPPORTIVE (03/31/17) INFLUENZA VACCINATION (05/28/13) INJECT/INFUSE NEC (01/28/15) MEDS MGMT FOR SUBSTANCE ABUSE TREATMENT, ANTABUSE (09/28/15) NEBULIZER THERAPY (11/22/14) OTHER GROUP THERAPY (02/12/15) PSYCHIAT DRUG THERAP NEC (02/12/15) Family History: States: Unknown Family Hx - Social History Hx Tobacco Use: Yes Hx Alcohol Use: Yes (beer/vodka) Hx Substance Use: Yes (use heroin everyday) - Immunization History Hx Tetanus Toxoid Vaccination: No Hx Influenza Vaccination: Yes Hx Pneumococcal Vaccination: Yes Review Of Systems Constitutional: Negative for: Fever, Chills Cardiovascular: Negative for: Chest Pain, Palpitations Respiratory: Positive for: Shortness of Breath. Negative for: Cough Gastrointestinal: Negative for: Nausea, Vomiting, Abdominal Pain Musculoskeletal: Negative for: Back Pain Skin: Negative for: Rash Neurological: Negative for: Weakness, Numbness Physical Exam - Physical Exam Appears: Non-toxic, Other (speaking in 2-3 word sentences) Skin: Warm, Dry Head: Normacephalic Nose: No Discharge, No Deformity Oral Mucosa: Moist Neck: Normal ROM, Supple Chest: Symmetrical Cardiovascular: Rhythm Regular, No Murmur Respiratory: Decreased Breath Sounds, Rhonchi (at the base ), Wheezing ( scattered) Gastrointestinal/Abdominal: Soft, No Tenderness, No Distention, No Rebound Extremity: Normal ROM, No Pedal Edema, No Calf Tenderness, No Deformity, No Swelling Neurological/Psych: Oriented x3 ED Course And Treatment - Laboratory Results Result Diagrams: 07/25/17 08:10 07/25/17 08:09 ECG: Interpreted By Me, Viewed By Me ECG Rhythm: Sinus Rhythm (104), Nonspecific Changes O2 Sat by Pulse Oximetry: 90 (On RA) Pulse Ox Interpretation: Abnormal - Radiology CXR: Interpreted by Me, Viewed By Me CXR Interpretation: Yes: COPD. No: Infiltrates, Fracture, Pnemothorax Progress Note: Plan: -ABG. -EKG. -CXR. -Duoneb 3 ml IH. -Solumedrol 125 mg IVP. -Blood culture. -Nebulizer treatment. -Inflienza A B test. -UA Critical Care Time - Critical Care Note Total Time (in mins): 30 Documented critical care: time excludes all time spent performing seperately billable procedures. Disposition Discussed With : Caryn Zapata Comment: accepted the pt on his service and took over the care at 10PM Counseled Patient/Family Regarding: Studies Performed, Diagnosis, Smoking Cessation - Disposition Disposition: HOSPITALIZED Disposition Time: 20:01 Condition: FAIR Forms: [email or web address] ([place]) - POA Present On Arrival: None - Clinical Impression Clinical Impression: Dyspnea, COPD exacerbation - Scribe Statement The provider has reviewed the documentation as recorded by the Scribe Jc Fritz All medical record entries made by the Scribe were at my direction and personally dictated by me. I have reviewed the chart and agree that the record accurately reflects my personal performance of the history, physical exam, medical decision making, and the department course for this patient. I have also personally directed, reviewed, and agree with the discharge instructions and disposition. Decision To Admit - Pt Status Changed To: Hospital Disposition Of: Inpatient - Admit Certification Admit to Inpatient:: After my assessment, the patient will require hospitalization for at least two midnights. This is because of the severity of symptoms shown, intensity of services needed, and/or the medical risk in this patient being treated as an outpatient. - InPatient: Physician Admission Certification: I certify that this patient requires 2 or more midnights of care for the following reason:: After my assessment, the patient will require hospitalization for at least two midnights. This is because of the severity of symptoms shown, intensity of services needed, and/or the medical risk in this patient being treated as an outpatient. - . Bed Request Type: Regular Admitting Physician: Caryn Zapata Patient Diagnosis: Dyspnea, COPD exacerbation
[2017-07-25 20:14] LABS: BASO # 0.1 K/uL (0.0-0.2); BASO % 0.5 % (0.0-2.0); EOS # 0.1 K/uL (0.0-0.7); EOS % 0.4 % (0.0-4.0); HEMOGLOBIN 14.9 g/dL (12.0-18.0); LYMPH # 2.6 K/uL (1.0-4.3); LYMPH % 13.2 % (20.0-40.0); MEAN CELL VOLUME 94.2 fL (80.0-94.0); MEAN CORPUSCULAR HEMOGLOBIN 31.5 pg (27.0-31.0); MEAN CORPUSCULAR HGB CONC 33.4 g/dL (33.0-37.0); MEAN PLATELET VOLUME 7.7 fL (7.2-11.7); MONO % 9.9 % (0.0-10.0); NEUT # 15.2 K/uL (1.8-7.0); NRBC % 0.1 % (0.0-2.0); RBC 4.74 Mil/uL (4.40-5.90); RED CELL DISTRIBUTION WIDTH 13.6 % (11.5-14.5)
[2017-07-25] MEDS ORDERED: Albuterol-Ipratrop 3 mg / 0.5 (3 ml) UD IH SCH (20:15)
[2017-07-25] MEDS ORDERED: Piperacillin/Tazobact 3.375 GM in Sodium Chloride 100 ML IVPB STA (20:20)
[2017-07-25 20:21] LABS: ABG ALLEN TEST PO; ARTERIAL BLOOD GAS HCO3 23.5 mmol/L (21-28); ARTERIAL BLOOD GAS O2 SAT 92.5 % (95-98); ARTERIAL BLOOD GAS PCO2 32 mm/Hg (35-45); ARTERIAL BLOOD GAS PH 7.44 (7.35-7.45); ARTERIAL BLOOD GAS PO2 54 mm/Hg (80-100); ARTERIAL BLOOD GAS TCO2 22.7 mmol/L (22-28)
[2017-07-25 20:22] LABS: INR 1.2; PROTHROMBIN TIME 13.6 SECONDS (9.7-12.2)
[2017-07-25] MEDS ORDERED: Piperacill/Tazo 3.375gm in Dex 3.375 GM/50 ML BAG IVPB STA (20:23)
[2017-07-25 20:27] LABS: ALBUMIN 4.2 g/dL (3.5-5.0); ALT/SGPT 28 U/L (21-72); AST/SGOT 32 U/L (17-59); BLOOD UREA NITROGEN 17 mg/dL (9-20); CALCIUM 9.1 mg/dl (8.6-10.4); GFR AFRICAN-AMERICAN > 60; GFR NON-AFRICAN AMERICAN > 60
[2017-07-25 20:28] LABS: ALB/GLOB RATIO 0.9 (1.0-2.1)
[2017-07-25 20:37] LABS: B-TYPE NATRIURETIC PEPTIDE 127 pg/mL (0-900)
[2017-07-25] MEDS ORDERED: Albuterol HFA 90 mcg/actuation (8 g) IH PRN (22:47)
--- NOTE | 2017-07-25 22:47 | CP.PCM.HP ---
Past Patient History - Infectious Disease Hx of Infectious Diseases: None - Tetanus Immunizations Tetanus Immunization: Unknown - Past Medical History & Family History Past Medical History?: Yes - Past Social History Smoking Status: Heavy Smoker > 10 Cigarettes Daily - CARDIAC Hx Hypertension: No - PULMONARY Hx Chronic Obstructive Pulmonary Disease (COPD): Yes Hx Emphysema: Yes Hx Pneumonia: Yes Hx Sleep Apnea: Yes - NEUROLOGICAL Hx Seizures: No - HEENT Hx HEENT Problems: No - RENAL Hx Dialysis: No - ENDOCRINE/METABOLIC Hx Endocrine Disorders: No - HEMATOLOGICAL/ONCOLOGICAL Hx Human Immunodeficiency Virus (HIV): No - INTEGUMENTARY Hx Dermatological Problems: No - MUSCULOSKELETAL/RHEUMATOLOGICAL Hx Falls: No - GASTROINTESTINAL Hx Gastrointestinal Disorders: No - GENITOURINARY/GYNECOLOGICAL Hx Sexually Transmitted Disorders: No - PSYCHIATRIC Hx Depression: Yes Hx Substance Use: Yes (use heroin everyday) - SURGICAL HISTORY Hx Surgeries: No - ANESTHESIA Hx Anesthesia: No Meds Allergies/Adverse Reactions: Allergies Allergy/AdvReac Type Severity Reaction Status Date / Time No Known Allergies Allergy Verified 05/18/17 09:01 Results - Vital Signs Recent Vital Signs: Last Vital Signs Temp 97.6 F 07/25/17 19:38 Pulse 88 07/25/17 20:40 Resp 30 H 07/25/17 19:58 BP 146/84 07/25/17 19:38 Pulse Ox 90 L 07/25/17 22:02 - Labs Result Diagrams: 07/25/17 08:10 07/25/17 08:09 Labs: Laboratory Results - last 24 hr 07/25/17 07/25/17 07/25/17 08:09 08:10 08:10 WBC 20.0 H RBC 4.74 Hgb 14.9 Hct 44.7 MCV 94.2 H MCH 31.5 H MCHC 33.4 RDW 13.6 Plt Count 505 H D MPV 7.7 Neut % (Auto) 76.0 H Lymph % (Auto) 13.2 L [place] % (Auto) 9.9 Eos % (Auto) 0.4 Baso % (Auto) 0.5 Neut # 15.2 H Lymph # 2.6 [place] # 2.0 H Eos # 0.1 Baso # 0.1 PT 13.6 H INR 1.2 APTT 32 Puncture Site pCO2 pO2 HCO3 ABG pH ABG Total CO2 ABG O2 Saturation ABG Base Excess Mychal Test ABG Potassium A-a O2 Difference Respiratory Index Glucose Lactate Liter Flow FiO2 Sodium 130 L Potassium 4.2 Chloride 92 L Carbon Dioxide 30 Anion Gap 13 BUN 17 Creatinine 0.7 L Est GFR ( Amer) > 60 Est GFR (Non-Af Amer) > 60 Random Glucose 98 Calcium 9.1 Magnesium 2.0 Total Bilirubin 0.7 AST 32 ALT 28 Alkaline Phosphatase 87 Troponin I < 0.0120 NT-Pro-B Natriuret Pep 127 Total Protein 9.2 H Albumin 4.2 Globulin 5.0 H Albumin/Globulin Ratio 0.9 L Arterial Blood Potassium Influenza Typ A,B (EIA) 07/25/17 07/25/17 20:02 20:19 WBC RBC Hgb Hct MCV MCH MCHC RDW Plt Count MPV Neut % (Auto) Lymph % (Auto) [place] % (Auto) Eos % (Auto) Baso % (Auto) Neut # Lymph # [place] # Eos # Baso # PT INR APTT Puncture Site Rr pCO2 32 L pO2 54 L HCO3 23.5 ABG pH 7.44 ABG Total CO2 22.7 ABG O2 Saturation 92.5 L ABG Base Excess -1.6 Mychal Test Po ABG Potassium 3.3 L A-a O2 Difference 134.0 Respiratory Index 2.5 Glucose 88 Lactate 1.1 Liter Flow 3.0 FiO2 32.0 Sodium 136.0 Potassium Chloride 102.0 Carbon Dioxide Anion Gap BUN Creatinine Est GFR ( Amer) Est GFR (Non-Af Amer) Random Glucose Calcium Magnesium Total Bilirubin AST ALT Alkaline Phosphatase Troponin I NT-Pro-B Natriuret Pep Total Protein Albumin Globulin Albumin/Globulin Ratio Arterial Blood Potassium 3.3 L Influenza Typ A,B (EIA) Negative for flu a/b
--- NOTE | 2017-07-26 08:30 | RAD ---
PROCEDURE: CHEST RADIOGRAPH, 1 VIEW HISTORY: SOB COMPARISON: Comparison is made to 05/25/2017 FINDINGS: LUNGS: Prominent lung markings are again noted. No evidence of new infiltrate or consolidation in the lungs. Mild hyperinflation of the lungs is also again noted PLEURA: No pneumothorax or pleural fluid seen. CARDIOVASCULAR: Normal. OSSEOUS STRUCTURES: No significant abnormalities. VISUALIZED UPPER ABDOMEN: Normal. OTHER FINDINGS: None. IMPRESSION: No active disease. Emphysema/COPD.
[2017-07-26 09:01] LABS: SQUAMOUS EPITHIAL < 1 /hpf (0-5); URINE BILIRUBIN NEGATIVE (NEGATIVE); URINE BLOOD 1+ (NEGATIVE); URINE CLARITY Hazy (Clear); URINE COLOR Yellow (YELLOW); URINE GLUCOSE (UA) 3+ mg/dL (Normal); URINE LEUKOCYTE ESTERASE NEG Leu/uL (Negative); URINE NITRATE NEGATIVE (NEGATIVE); URINE PROTEIN 1+ mg/dL (NEGATIVE); URINE UROBILINOGEN NORMAL mg/dL (0.2-1.0)
[2017-07-26 09:02] LABS: URINE URIC ACID CRYSTALS FEW /hpf (<OCC)
[2017-07-26] MEDS: Saccharomyces Boulardi 250 mg Cap PO SCH ×2 (10:23→19:15)
[2017-07-26] MEDS: Multivitamin With Minerals Tab PO SCH (10:23)
[2017-07-26] MEDS: Pantoprazole 40 mg EC Tab PO SCH (10:23)
[2017-07-26] MEDS: Azithromycin 500 MG in Sodium Chloride 0.9% 250 ML IVPB SCH (10:25)
[2017-07-26] MEDS: cefTRIAXone IV 1 gm in Dextros 1 GM in Dextrose 5% In Water 50 ML IVPB SCH (10:40)
--- NOTE | 2017-07-26 13:18 | CP.PCM.CON ---
Past Patient History - Infectious Disease Hx of Infectious Diseases: None - Tetanus Immunizations Tetanus Immunization: Unknown - Past Medical History & Family History Past Medical History?: Yes - Past Social History Smoking Status: Current Some Days Smoker - CARDIAC Hx Cardiac Disorders: No - PULMONARY Hx Respiratory Disorders: Yes Hx Chronic Obstructive Pulmonary Disease (COPD): Yes Hx Emphysema: Yes Hx Pneumonia: Yes Hx Sleep Apnea: Yes - NEUROLOGICAL Hx Neurological Disorder: No - HEENT Hx HEENT Problems: No - RENAL Hx Chronic Kidney Disease: No Hx Dialysis: No - ENDOCRINE/METABOLIC Hx Endocrine Disorders: No - HEMATOLOGICAL/ONCOLOGICAL Hx Blood Disorders: No Hx Human Immunodeficiency Virus (HIV): No - INTEGUMENTARY Hx Dermatological Problems: No - MUSCULOSKELETAL/RHEUMATOLOGICAL Hx Musculoskeletal Disorders: Yes Hx Back Pain: Yes Hx Falls: No - GASTROINTESTINAL Hx Gastrointestinal Disorders: No - GENITOURINARY/GYNECOLOGICAL Hx Genitourinary Disorders: No Hx Sexually Transmitted Disorders: No - PSYCHIATRIC Hx Psychophysiologic Disorder: Yes Hx Depression: Yes Hx Substance Use: Yes (use heroin Occasionally) - SURGICAL HISTORY Hx Surgeries: No - ANESTHESIA Hx Anesthesia: No Meds Allergies/Adverse Reactions: Allergies Allergy/AdvReac Type Severity Reaction Status Date / Time No Known Allergies Allergy Verified 05/18/17 09:01 - Medications Medications: Current Medications Albuterol (Ventolin Hfa 90 Mcg/Actuation (8 G)) 1 puff IH RQ4 PRN PRN Reason: Shortness of Breath Folic Acid (Folic Acid) 1 mg PO DAILY [facility] Last Admin: 07/26/17 10:23 Dose: 1 mg Azithromycin 500 mg/ Sodium (Chloride) 250 mls @ 250 mls/hr IVPB DAILY [facility] Last Admin: 07/26/17 10:25 Dose: 250 mls/hr Ceftriaxone Sodium 1 gm/ (Dextrose) 100 mls @ 50 mls/30 min IVPB DAILY [facility] Last Admin: 07/26/17 10:40 Dose: 50 mls/30 min Methylprednisolone (Solu-Medrol) 60 mg IVP Q8 [facility] Metoprolol Tartrate (Lopressor) 25 mg PO BID [facility] Last Admin: 07/26/17 10:24 Dose: 25 mg Montelukast Sodium (Singulair) 10 mg PO HS [facility] Multivitamins/Minerals (Therapeutic-M Tab) 1 tab PO DAILY [facility] Last Admin: 07/26/17 10:23 Dose: 1 tab Pantoprazole Sodium (Protonix Ec Tab) 40 mg PO DAILY [facility] Last Admin: 07/26/17 10:23 Dose: 40 mg Quetiapine Fumarate (Seroquel) 100 mg PO HS [facility] Saccharomyces Boulardii (Florastor) 250 mg PO BID [facility] Last Admin: 07/26/17 10:23 Dose: 250 mg Fluticasone/Salmeterol (Advair Diskus 250/50) 1 puff INH RBID [facility] Trazodone HCl (Desyrel) 100 mg PO HS [facility] Results - Vital Signs Recent Vital Signs: Last Vital Signs Temp 97.9 F 07/26/17 09:04 Pulse 80 07/26/17 09:04 Resp 20 07/26/17 09:04 BP 137/85 07/26/17 10:24 Pulse Ox 94 L 07/26/17 09:04 - Labs Result Diagrams: 07/25/17 08:10 07/25/17 08:09 Labs: Laboratory Results - last 24 hr 07/25/17 07/25/17 07/25/17 08:09 08:10 08:10 WBC 20.0 H RBC 4.74 Hgb 14.9 Hct 44.7 MCV 94.2 H MCH 31.5 H MCHC 33.4 RDW 13.6 Plt Count 505 H D MPV 7.7 Neut % (Auto) 76.0 H Lymph % (Auto) 13.2 L Amador % (Auto) 9.9 Eos % (Auto) 0.4 Baso % (Auto) 0.5 Neut # 15.2 H Lymph # 2.6 Amador # 2.0 H Eos # 0.1 Baso # 0.1 PT 13.6 H INR 1.2 APTT 32 Puncture Site pCO2 pO2 HCO3 ABG pH ABG Total CO2 ABG O2 Saturation ABG Base Excess Mcyhal Test ABG Potassium A-a O2 Difference Respiratory Index Glucose Lactate Liter Flow FiO2 Sodium 130 L Potassium 4.2 Chloride 92 L Carbon Dioxide 30 Anion Gap 13 BUN 17 Creatinine 0.7 L Est GFR ( Amer) > 60 Est GFR (Non-Af Amer) > 60 Random Glucose 98 Calcium 9.1 Magnesium 2.0 Total Bilirubin 0.7 AST 32 ALT 28 Alkaline Phosphatase 87 Troponin I < 0.0120 NT-Pro-B Natriuret Pep 127 Total Protein 9.2 H Albumin 4.2 Globulin 5.0 H Albumin/Globulin Ratio 0.9 L Arterial Blood Potassium Urine Color Urine Clarity Urine pH Ur Specific [place] Urine Protein Urine Glucose (UA) Urine Ketones Urine Blood Urine Nitrate Urine Bilirubin Urine Urobilinogen Ur Leukocyte Esterase Urine WBC (Auto) Urine RBC (Auto) Ur Squamous Epith Cells Uric Acid Crystals Influenza Typ A,B (EIA) 07/25/17 07/25/17 07/26/17 20:02 20:19 08:34 WBC RBC Hgb Hct MCV MCH MCHC RDW Plt Count MPV Neut % (Auto) Lymph % (Auto) Amador % (Auto) Eos % (Auto) Baso % (Auto) Neut # Lymph # Am[place] # Eos # Baso # PT INR APTT Puncture Site Rr pCO2 32 L pO2 54 L HCO3 23.5 ABG pH 7.44 ABG Total CO2 22.7 ABG O2 Saturation 92.5 L ABG Base Excess -1.6 Mychal Test Po ABG Potassium 3.3 L A-a O2 Difference 134.0 Respiratory Index 2.5 Glucose 88 Lactate 1.1 Liter Flow 3.0 FiO2 32.0 Sodium 136.0 Potassium Chloride 102.0 Carbon Dioxide Anion Gap BUN Creatinine Est GFR ( Amer) Est GFR (Non-Af Amer) Random Glucose Calcium Magnesium Total Bilirubin AST ALT Alkaline Phosphatase Troponin I NT-Pro-B Natriuret Pep Total Protein Albumin Globulin Albumin/Globulin Ratio Arterial Blood Potassium 3.3 L Urine Color Yellow Urine Clarity Hazy Urine pH 5.0 Ur Specific [place] 1.016 Urine Protein 1+ H Urine Glucose (UA) 3+ H Urine Ketones Negative Urine Blood 1+ H Urine Nitrate Negative Urine Bilirubin Negative Urine Urobilinogen Normal Ur Leukocyte Esterase Neg Urine WBC (Auto) 3 Urine RBC (Auto) < 1 Ur Squamous Epith Cells < 1 Uric Acid Crystals Few H Influenza Typ A,B (EIA) Negative for flu a/b
[2017-07-26] MEDS: MethylPREDNISolone 40 mg Vial IVP SCH ×2 (14:00→21:38)
--- NOTE | 2017-07-26 18:39 | CP.PCM.PN ---
Subjective - Date & Time of Evaluation Date of Evaluation: 07/26/17 Time of Evaluation: 13:30 Objective - Vital Signs/Intake and Output Vital Signs (last 24 hours): Temp Pulse Resp BP Pulse Ox 97.9 F 80 20 137/85 94 L 07/26/17 09:04 07/26/17 09:04 07/26/17 09:04 07/26/17 10:24 07/26/17 09:04 - Medications Medications: Current Medications Albuterol (Ventolin Hfa 90 Mcg/Actuation (8 G)) 1 puff IH RQ4 PRN PRN Reason: Shortness of Breath Folic Acid (Folic Acid) 1 mg PO DAILY [facility] Last Admin: 07/26/17 10:23 Dose: 1 mg Azithromycin 500 mg/ Sodium (Chloride) 250 mls @ 250 mls/hr IVPB DAILY [facility] Last Admin: 07/26/17 10:25 Dose: 250 mls/hr Ceftriaxone Sodium 1 gm/ (Dextrose) 100 mls @ 50 mls/30 min IVPB DAILY [facility] Last Admin: 07/26/17 10:40 Dose: 50 mls/30 min Methylprednisolone (Solu-Medrol) 60 mg IVP Q8 [facility] Last Admin: 07/26/17 14:00 Dose: 60 mg Metoprolol Tartrate (Lopressor) 25 mg PO BID [facility] Last Admin: 07/26/17 10:24 Dose: 25 mg Montelukast Sodium (Singulair) 10 mg PO HS [facility] Multivitamins/Minerals (Therapeutic-M Tab) 1 tab PO DAILY [facility] Last Admin: 07/26/17 10:23 Dose: 1 tab Pantoprazole Sodium (Protonix Ec Tab) 40 mg PO DAILY [facility] Last Admin: 07/26/17 10:23 Dose: 40 mg Quetiapine Fumarate (Seroquel) 100 mg PO HS [facility] Saccharomyces Boulardii (Florastor) 250 mg PO BID [facility] Last Admin: 07/26/17 10:23 Dose: 250 mg Fluticasone/Salmeterol (Advair Diskus 250/50) 1 puff INH RBID [facility] Trazodone HCl (Desyrel) 100 mg PO HS [facility] - Labs Labs: 07/25/17 08:10 07/25/17 08:09 PT 13.6 SECONDS (9.7-12.2) H 07/25/17 08:10 INR 1.2 07/25/17 08:10 APTT 32 SECONDS (21-34) 07/25/17 08:10
[2017-07-26] MEDS: Fluticasone-Salmeterol 250-50mcg Diskus INH SCH (20:39)
[2017-07-26] MEDS ORDERED: MethylPREDNISolone 40 mg Vial IVP SCH (22:00)
[2017-07-27] MEDS: MethylPREDNISolone 40 mg Vial IVP SCH ×3 (06:38→21:56)
[2017-07-27] MEDS: Pantoprazole 40 mg EC Tab PO SCH (09:23)
[2017-07-27] MEDS: Saccharomyces Boulardi 250 mg Cap PO SCH ×2 (09:23→17:58)
[2017-07-27] MEDS: Multivitamin With Minerals Tab PO SCH (09:23)
[2017-07-27] MEDS: Azithromycin 500 MG in Sodium Chloride 0.9% 250 ML IVPB SCH (09:24)
[2017-07-27] MEDS: cefTRIAXone IV 1 gm in Dextros 1 GM in Dextrose 5% In Water 50 ML IVPB SCH (11:03)
--- NOTE | 2017-07-27 15:38 | CP.PCM.PN ---
Subjective - Date & Time of Evaluation Date of Evaluation: 07/27/17 Time of Evaluation: 14:00 - Subjective Subjective: clinically same Objective - Vital Signs/Intake and Output Vital Signs (last 24 hours): Temp Pulse Resp BP Pulse Ox 98.2 F 68 20 149/74 96 07/27/17 08:31 07/27/17 11:23 07/27/17 08:31 07/27/17 09:23 07/27/17 08:31 Intake and Output: 07/27/17 07/27/17 06:59 18:59 Intake Total 600 Balance 600 - Medications Medications: Current Medications Albuterol (Ventolin Hfa 90 Mcg/Actuation (8 G)) 1 puff IH RQ4 PRN PRN Reason: Shortness of Breath Folic Acid (Folic Acid) 1 mg PO DAILY [facility] Last Admin: 07/27/17 09:23 Dose: 1 mg Azithromycin 500 mg/ Sodium (Chloride) 250 mls @ 250 mls/hr IVPB DAILY [facility] Last Admin: 07/27/17 09:24 Dose: 250 mls/hr Ceftriaxone Sodium 1 gm/ (Dextrose) 100 mls @ 50 mls/30 min IVPB DAILY [facility] Last Admin: 07/27/17 11:03 Dose: 50 mls/30 min Methylprednisolone (Solu-Medrol) 60 mg IVP Q8 [facility] Last Admin: 07/27/17 12:59 Dose: 60 mg Metoprolol Tartrate (Lopressor) 25 mg PO BID [facility] Last Admin: 07/27/17 09:23 Dose: 25 mg Montelukast Sodium (Singulair) 10 mg PO HS [facility] Last Admin: 07/26/17 21:38 Dose: 10 mg Multivitamins/Minerals (Therapeutic-M Tab) 1 tab PO DAILY [facility] Last Admin: 07/27/17 09:23 Dose: 1 tab Pantoprazole Sodium (Protonix Ec Tab) 40 mg PO DAILY [facility] Last Admin: 07/27/17 09:23 Dose: 40 mg Quetiapine Fumarate (Seroquel) 100 mg PO HS [facility] Last Admin: 07/26/17 21:37 Dose: 100 mg Saccharomyces Boulardii (Florastor) 250 mg PO BID [facility] Last Admin: 07/27/17 09:23 Dose: 250 mg Fluticasone/Salmeterol (Advair Diskus 250/50) 1 puff INH RBID [facility] Last Admin: 07/26/17 20:39 Dose: Not Given Trazodone HCl (Desyrel) 100 mg PO HS [facility] Last Admin: 07/26/17 21:37 Dose: 100 mg - Labs Labs: 07/25/17 08:10 07/25/17 08:09 PT 13.6 SECONDS (9.7-12.2) H 07/25/17 08:10 INR 1.2 07/25/17 08:10 APTT 32 SECONDS (21-34) 07/25/17 08:10 - Constitutional Appears: Well - Head Exam Head Exam: ATRAUMATIC, NORMAL INSPECTION, NORMOCEPHALIC - Eye Exam Eye Exam: EOMI, Normal appearance, PERRL Pupil Exam: NORMAL ACCOMODATION, PERRL - ENT Exam ENT Exam: Mucous Membranes Moist, Normal Exam - Neck Exam Neck Exam: Full ROM, Normal Inspection. absent: Lymphadenopathy - Respiratory Exam Respiratory Exam: Decreased Breath Sounds - Cardiovascular Exam Cardiovascular Exam: REGULAR RHYTHM, +S1, +S2 - GI/Abdominal Exam GI & Abdominal Exam: Soft, Diminished Bowel Sounds - Rectal Exam Rectal Exam: Deferred
[2017-07-27] MEDS: guaiFENesin DM 200 mg-20 mg/10 ml UD PO PRN (22:00)
[2017-07-28] MEDS: MethylPREDNISolone 40 mg Vial IVP SCH ×3 (05:27→21:26)
[2017-07-28] MEDS: guaiFENesin DM 200 mg-20 mg/10 ml UD PO PRN ×2 (05:33→16:30)
[2017-07-28] MEDS: Azithromycin 500 MG in Sodium Chloride 0.9% 250 ML IVPB SCH (09:30)
[2017-07-28] MEDS: Saccharomyces Boulardi 250 mg Cap PO SCH ×2 (09:31→17:53)
[2017-07-28] MEDS: Multivitamin With Minerals Tab PO SCH (09:31)
[2017-07-28] MEDS: Pantoprazole 40 mg EC Tab PO SCH (09:31)
[2017-07-28] MEDS ORDERED: guaiFENesin DM 200 mg-20 mg/10 ml UD PO SCH (10:00)
--- NOTE | 2017-07-28 11:34 | CP.PCM.PN ---
Subjective - Date & Time of Evaluation Date of Evaluation: 07/28/17 Time of Evaluation: 13:20 - Subjective Subjective: clinically same Objective - Vital Signs/Intake and Output Vital Signs (last 24 hours): Temp Pulse Resp BP Pulse Ox 97.9 F 62 20 157/77 H 97 07/28/17 07:00 07/28/17 07:00 07/28/17 07:00 07/28/17 09:32 07/28/17 07:00 - Medications Medications: Current Medications Albuterol (Ventolin Hfa 90 Mcg/Actuation (8 G)) 1 puff IH RQ4 PRN PRN Reason: Shortness of Breath Folic Acid (Folic Acid) 1 mg PO DAILY [facility] Last Admin: 07/28/17 09:31 Dose: 1 mg Guaifenesin/Dextromethorphan (Robitussin Dm) 10 ml PO TID PRN PRN Reason: Cough and congestion Last Admin: 07/28/17 05:33 Dose: 10 ml Azithromycin 500 mg/ Sodium (Chloride) 250 mls @ 250 mls/hr IVPB DAILY [facility] Last Admin: 07/28/17 09:30 Dose: 250 mls/hr Ceftriaxone Sodium 1 gm/ (Dextrose) 100 mls @ 50 mls/30 min IVPB DAILY [facility] Last Admin: 07/28/17 09:30 Dose: 50 mls/30 min Methylprednisolone (Solu-Medrol) 60 mg IVP Q8 [facility] Last Admin: 07/28/17 05:27 Dose: 60 mg Metoprolol Tartrate (Lopressor) 25 mg PO BID [facility] Last Admin: 07/28/17 09:32 Dose: 25 mg Montelukast Sodium (Singulair) 10 mg PO [facility] Last Admin: 07/27/17 21:57 Dose: 10 mg Multivitamins/Minerals (Therapeutic-M Tab) 1 tab PO DAILY [facility] Last Admin: 07/28/17 09:31 Dose: 1 tab Pantoprazole Sodium (Protonix Ec Tab) 40 mg PO DAILY [facility] Last Admin: 07/28/17 09:31 Dose: 40 mg Quetiapine Fumarate (Seroquel) 100 mg PO [facility] Last Admin: 07/27/17 21:57 Dose: 100 mg Saccharomyces Boulardii (Florastor) 250 mg PO BID [facility] Last Admin: 07/28/17 09:31 Dose: 250 mg Fluticasone/Salmeterol (Advair Diskus 250/50) 1 puff INH RBID [facility] Last Admin: 07/26/17 20:39 Dose: Not Given Trazodone HCl (Desyrel) 100 mg PO HS [facility] Last Admin: 07/27/17 21:57 Dose: 100 mg - Labs Labs: 07/25/17 08:10 07/25/17 08:09 PT 13.6 SECONDS (9.7-12.2) H 07/25/17 08:10 INR 1.2 07/25/17 08:10 APTT 32 SECONDS (21-34) 07/25/17 08:10 - Constitutional Appears: Well - Head Exam Head Exam: ATRAUMATIC, NORMAL INSPECTION, NORMOCEPHALIC - Eye Exam Eye Exam: EOMI, Normal appearance, PERRL Pupil Exam: NORMAL ACCOMODATION, PERRL - ENT Exam ENT Exam: Mucous Membranes Moist, Normal Exam - Neck Exam Neck Exam: Full ROM, Normal Inspection. absent: Lymphadenopathy - Respiratory Exam Respiratory Exam: Decreased Breath Sounds - Cardiovascular Exam Cardiovascular Exam: REGULAR RHYTHM, +S1, +S2 - GI/Abdominal Exam GI & Abdominal Exam: Soft, Diminished Bowel Sounds - Rectal Exam Rectal Exam: Deferred
--- NOTE | 2017-07-28 12:53 | CARD ---
APPROVED REPORT EKG Measurement Heart [id number] <Conclusion> Sinus tachycardia Otherwise normal ECG
[2017-07-28] MEDS: Enoxaparin 40 mg Syringe SC SCH (13:03)
--- NOTE | 2017-07-28 15:39 | CP.PCM.PN ---
Subjective - Date & Time of Evaluation Date of Evaluation: 07/28/17 Time of Evaluation: 15:39 Objective - Vital Signs/Intake and Output Vital Signs (last 24 hours): Temp Pulse Resp BP Pulse Ox 97.9 F 62 20 157/77 H 97 07/28/17 07:00 07/28/17 07:00 07/28/17 07:00 07/28/17 09:32 07/28/17 07:00 - Medications Medications: Current Medications Albuterol (Ventolin Hfa 90 Mcg/Actuation (8 G)) 1 puff IH RQ4 PRN PRN Reason: Shortness of Breath Enoxaparin Sodium (Lovenox) 40 mg SC DAILY [facility] Last Admin: 07/28/17 13:03 Dose: Not Given Folic Acid (Folic Acid) 1 mg PO DAILY [facility] Last Admin: 07/28/17 09:31 Dose: 1 mg Guaifenesin/Dextromethorphan (Robitussin Dm) 10 ml PO TID PRN PRN Reason: Cough and congestion Last Admin: 07/28/17 05:33 Dose: 10 ml Azithromycin 500 mg/ Sodium (Chloride) 250 mls @ 250 mls/hr IVPB DAILY [facility] Last Admin: 07/28/17 09:30 Dose: 250 mls/hr Ceftriaxone Sodium 1 gm/ (Dextrose) 100 mls @ 50 mls/30 min IVPB DAILY [facility] Last Admin: 07/28/17 09:30 Dose: 50 mls/30 min Methylprednisolone (Solu-Medrol) 60 mg IVP Q8 [facility] Last Admin: 07/28/17 13:11 Dose: 60 mg Metoprolol Tartrate (Lopressor) 25 mg PO BID [facility] Last Admin: 07/28/17 09:32 Dose: 25 mg Montelukast Sodium (Singulair) 10 mg PO [facility] Last Admin: 07/27/17 21:57 Dose: 10 mg Multivitamins/Minerals (Therapeutic-M Tab) 1 tab PO DAILY [facility] Last Admin: 07/28/17 09:31 Dose: 1 tab Pantoprazole Sodium (Protonix Ec Tab) 40 mg PO DAILY [facility] Last Admin: 07/28/17 09:31 Dose: 40 mg Quetiapine Fumarate (Seroquel) 100 mg PO [facility] Last Admin: 07/27/17 21:57 Dose: 100 mg Saccharomyces Boulardii (Florastor) 250 mg PO BID [facility] Last Admin: 07/28/17 09:31 Dose: 250 mg Fluticasone/Salmeterol (Advair Diskus 250/50) 1 puff INH RBID [facility] Last Admin: 07/26/17 20:39 Dose: Not Given Trazodone HCl (Desyrel) 100 mg PO HS [facility] Last Admin: 07/27/17 21:57 Dose: 100 mg - Labs Labs: 07/25/17 08:10 07/25/17 08:09 PT 13.6 SECONDS (9.7-12.2) H 07/25/17 08:10 INR 1.2 07/25/17 08:10 APTT 32 SECONDS (21-34) 07/25/17 08:10
[2017-07-28 17:28] LABS: BASO % 0.1 % (0.0-2.0); HEMOGLOBIN 13.8 g/dL (12.0-18.0); LYMPH # 0.9 K/uL (1.0-4.3); LYMPH % 3.7 % (20.0-40.0); MEAN CELL VOLUME 94.7 fL (80.0-94.0); MEAN CORPUSCULAR HEMOGLOBIN 30.7 pg (27.0-31.0); MEAN CORPUSCULAR HGB CONC 32.4 g/dL (33.0-37.0); MEAN PLATELET VOLUME 8.3 fL (7.2-11.7); MONO # 0.8 K/uL (0.0-0.8); NEUT # 23.3 K/uL (1.8-7.0); NEUT % 93.2 % (50.0-75.0); PLATELET COUNT 579 K/uL (130-400); RBC 4.49 Mil/uL (4.40-5.90); RED CELL DISTRIBUTION WIDTH 13.7 % (11.5-14.5)
[2017-07-28 17:43] LABS: ALB/GLOB RATIO 1.2 (1.0-2.1); ALBUMIN 3.7 g/dL (3.5-5.0); ALT/SGPT 105 U/L (21-72); AST/SGOT 47 U/L (17-59); BLOOD UREA NITROGEN 17 mg/dL (9-20); CALCIUM 8.6 mg/dl (8.6-10.4); GFR AFRICAN-AMERICAN > 60; GFR NON-AFRICAN AMERICAN > 60
[2017-07-28 18:04] LABS: LYMPHOCYTE 8 % (20-40); MONOCYTE 4 % (0-10); NEUTROPHIL 88 % (50-75); PLATELET ESTIMATE INCREASED (NORMAL); TOTAL CELLS COUNTED 100
[2017-07-28 18:05] LABS: LARGE PLATELETS PRESENT
[2017-07-28] MEDS: Fluticasone-Salmeterol 250-50mcg Diskus INH SCH (20:39)
[2017-07-29] MEDS: guaiFENesin DM 200 mg-20 mg/10 ml UD PO PRN (02:14)
[2017-07-29] MEDS: MethylPREDNISolone 40 mg Vial IVP SCH ×3 (05:34→21:51)
[2017-07-29] MEDS: Fluticasone-Salmeterol 250-50mcg Diskus INH SCH ×2 (08:56→20:01)
[2017-07-29] MEDS: Albuterol HFA 90 mcg/actuation (8 g) IH PRN ×2 (08:58→11:31)
[2017-07-29] MEDS: Enoxaparin 40 mg Syringe SC SCH (09:50)
[2017-07-29] MEDS: Azithromycin 500 MG in Sodium Chloride 0.9% 250 ML IVPB SCH (09:50)
[2017-07-29] MEDS: Multivitamin With Minerals Tab PO SCH (09:51)
[2017-07-29] MEDS: Saccharomyces Boulardi 250 mg Cap PO SCH ×2 (09:51→17:41)
[2017-07-29] MEDS: Pantoprazole 40 mg EC Tab PO SCH (09:51)
--- NOTE | 2017-07-29 12:11 | CP.PCM.PN ---
Subjective - Date & Time of Evaluation Date of Evaluation: 07/29/17 Time of Evaluation: 12:11 Objective - Vital Signs/Intake and Output Vital Signs (last 24 hours): Temp Pulse Resp BP Pulse Ox 97.9 F 61 20 169/67 H 96 07/29/17 08:50 07/29/17 08:50 07/29/17 08:50 07/29/17 09:51 07/29/17 08:50 Intake and Output: 07/29/17 07/29/17 06:59 18:59 Intake Total 118 Balance 118 - Medications Medications: Current Medications Albuterol (Ventolin Hfa 90 Mcg/Actuation (8 G)) 1 puff IH RQ4 PRN PRN Reason: Shortness of Breath Last Admin: 07/29/17 11:31 Dose: 1 puff Enoxaparin Sodium (Lovenox) 40 mg SC DAILY [facility] Last Admin: 07/29/17 09:50 Dose: 40 mg Folic Acid (Folic Acid) 1 mg PO DAILY [facility] Last Admin: 07/29/17 09:51 Dose: 1 mg Guaifenesin/Dextromethorphan (Robitussin Dm) 10 ml PO TID PRN PRN Reason: Cough and congestion Last Admin: 07/29/17 02:14 Dose: 10 ml Azithromycin 500 mg/ Sodium (Chloride) 250 mls @ 250 mls/hr IVPB DAILY [facility] Last Admin: 07/29/17 09:50 Dose: 250 mls/hr Ceftriaxone Sodium 1 gm/ (Dextrose) 100 mls @ 50 mls/30 min IVPB DAILY [facility] Last Admin: 07/28/17 09:30 Dose: 50 mls/30 min Methylprednisolone (Solu-Medrol) 60 mg IVP Q8 [facility] Last Admin: 07/29/17 05:34 Dose: 60 mg Metoprolol Tartrate (Lopressor) 25 mg PO BID [facility] Last Admin: 07/29/17 09:51 Dose: 25 mg Montelukast Sodium (Singulair) 10 mg PO HS [facility] Last Admin: 07/28/17 21:29 Dose: 10 mg Multivitamins/Minerals (Therapeutic-M Tab) 1 tab PO DAILY [facility] Last Admin: 07/29/17 09:51 Dose: 1 tab Pantoprazole Sodium (Protonix Ec Tab) 40 mg PO DAILY [facility] Last Admin: 07/29/17 09:51 Dose: 40 mg Quetiapine Fumarate (Seroquel) 100 mg PO [facility] Last Admin: 07/28/17 21:26 Dose: 100 mg Saccharomyces Boulardii (Florastor) 250 mg PO BID [facility] Last Admin: 07/29/17 09:51 Dose: 250 mg Fluticasone/Salmeterol (Advair Diskus 250/50) 1 puff INH RBID [facility] Last Admin: 07/29/17 08:56 Dose: 1 puff Trazodone HCl (Desyrel) 100 mg PO [facility] Last Admin: 07/28/17 21:26 Dose: 100 mg - Labs Labs: 07/28/17 17:19 07/28/17 17:19 PT 13.6 SECONDS (9.7-12.2) H 07/25/17 08:10 INR 1.2 07/25/17 08:10 APTT 32 SECONDS (21-34) 07/25/17 08:10
--- NOTE | 2017-07-29 19:18 | CP.PCM.PN ---
Subjective - Date & Time of Evaluation Date of Evaluation: 07/29/17 Time of Evaluation: 11:40 - Subjective Subjective: clinically same Objective - Vital Signs/Intake and Output Vital Signs (last 24 hours): Temp Pulse Resp BP Pulse Ox 99.6 F 75 20 150/88 95 07/29/17 15:00 07/29/17 17:00 07/29/17 15:00 07/29/17 17:41 07/29/17 15:00 - Medications Medications: Current Medications Albuterol (Ventolin Hfa 90 Mcg/Actuation (8 G)) 1 puff IH RQ4 PRN PRN Reason: Shortness of Breath Last Admin: 07/29/17 11:31 Dose: 1 puff Enoxaparin Sodium (Lovenox) 40 mg SC DAILY [facility] Last Admin: 07/29/17 09:50 Dose: 40 mg Folic Acid (Folic Acid) 1 mg PO DAILY [facility] Last Admin: 07/29/17 09:51 Dose: 1 mg Guaifenesin/Dextromethorphan (Robitussin Dm) 10 ml PO TID PRN PRN Reason: Cough and congestion Last Admin: 07/29/17 02:14 Dose: 10 ml Azithromycin 500 mg/ Sodium (Chloride) 250 mls @ 250 mls/hr IVPB DAILY [facility] Last Admin: 07/29/17 09:50 Dose: 250 mls/hr Ceftriaxone Sodium 1 gm/ (Dextrose) 100 mls @ 50 mls/30 min IVPB DAILY [facility] Last Admin: 07/29/17 14:01 Dose: 50 mls/30 min Methylprednisolone (Solu-Medrol) 60 mg IVP Q8 [facility] Last Admin: 07/29/17 14:02 Dose: 60 mg Metoprolol Tartrate (Lopressor) 25 mg PO BID [facility] Last Admin: 07/29/17 17:41 Dose: 25 mg Montelukast Sodium (Singulair) 10 mg PO HS [facility] Last Admin: 07/28/17 21:29 Dose: 10 mg Multivitamins/Minerals (Therapeutic-M Tab) 1 tab PO DAILY [facility] Last Admin: 07/29/17 09:51 Dose: 1 tab Pantoprazole Sodium (Protonix Ec Tab) 40 mg PO DAILY [facility] Last Admin: 07/29/17 09:51 Dose: 40 mg Quetiapine Fumarate (Seroquel) 100 mg PO HS [facility] Last Admin: 07/28/17 21:26 Dose: 100 mg Saccharomyces Boulardii (Florastor) 250 mg PO BID [facility] Last Admin: 07/29/17 17:41 Dose: 250 mg Fluticasone/Salmeterol (Advair Diskus 250/50) 1 puff INH RBID [facility] Last Admin: 07/29/17 08:56 Dose: 1 puff Trazodone HCl (Desyrel) 100 mg PO HS [facility] Last Admin: 07/28/17 21:26 Dose: 100 mg - Labs Labs: 07/28/17 17:19 07/28/17 17:19 PT 13.6 SECONDS (9.7-12.2) H 07/25/17 08:10 INR 1.2 07/25/17 08:10 APTT 32 SECONDS (21-34) 07/25/17 08:10 - Constitutional Appears: Well - Head Exam Head Exam: ATRAUMATIC, NORMAL INSPECTION, NORMOCEPHALIC - Eye Exam Eye Exam: EOMI, Normal appearance, PERRL Pupil Exam: NORMAL ACCOMODATION, PERRL - ENT Exam ENT Exam: Mucous Membranes Moist, Normal Exam - Neck Exam Neck Exam: Full ROM, Normal Inspection. absent: Lymphadenopathy - Respiratory Exam Respiratory Exam: Decreased Breath Sounds - Cardiovascular Exam Cardiovascular Exam: REGULAR RHYTHM, +S1, +S2 - GI/Abdominal Exam GI & Abdominal Exam: Soft, Diminished Bowel Sounds - Rectal Exam Rectal Exam: Deferred
[2017-07-30] MEDS: MethylPREDNISolone 40 mg Vial IVP SCH ×4 (06:20→22:11)
[2017-07-30] MEDS: Fluticasone-Salmeterol 250-50mcg Diskus INH SCH ×2 (07:16→19:34)
[2017-07-30] MEDS: Albuterol HFA 90 mcg/actuation (8 g) IH PRN ×4 (07:16→19:35)
--- NOTE | 2017-07-30 08:44 | CP.PCM.PN ---
Subjective - Date & Time of Evaluation Date of Evaluation: 07/30/17 Time of Evaluation: 08:41 - Subjective Subjective: Progress Note for Dr. Zapata's Service Patient seen and examined at bedside. He reports significant improvement in his breathing but states that he does get short of breath when walking in the hallways. Denies fever chills nausea vomiting diarrhea constipation. He does have a cough productive of clear sputum. Objective - Vital Signs/Intake and Output Vital Signs (last 24 hours): Temp Pulse Resp BP Pulse Ox 98.3 F 74 20 100/68 97 07/29/17 23:21 07/30/17 04:23 07/29/17 23:21 07/29/17 23:21 07/29/17 23:21 Intake and Output: 07/30/17 07/30/17 06:59 18:59 Intake Total 360 Balance 360 - Medications Medications: Current Medications Albuterol (Ventolin Hfa 90 Mcg/Actuation (8 G)) 1 puff IH RQ4 PRN PRN Reason: Shortness of Breath Last Admin: 07/30/17 07:16 Dose: 1 puff Enoxaparin Sodium (Lovenox) 40 mg SC DAILY [facility] Last Admin: 07/29/17 09:50 Dose: 40 mg Folic Acid (Folic Acid) 1 mg PO DAILY [facility] Last Admin: 07/29/17 09:51 Dose: 1 mg Guaifenesin/Dextromethorphan (Robitussin Dm) 10 ml PO TID PRN PRN Reason: Cough and congestion Last Admin: 07/29/17 02:14 Dose: 10 ml Azithromycin 500 mg/ Sodium (Chloride) 250 mls @ 250 mls/hr IVPB DAILY [facility] Last Admin: 07/29/17 09:50 Dose: 250 mls/hr Ceftriaxone Sodium 1 gm/ (Dextrose) 100 mls @ 50 mls/30 min IVPB DAILY [facility] Last Admin: 07/29/17 14:01 Dose: 50 mls/30 min Methylprednisolone (Solu-Medrol) 60 mg IVP Q8 [facility] Last Admin: 07/30/17 06:20 Dose: 60 mg Metoprolol Tartrate (Lopressor) 25 mg PO BID [facility] Last Admin: 07/29/17 17:41 Dose: 25 mg Montelukast Sodium (Singulair) 10 mg PO HS [facility] Last Admin: 07/29/17 21:51 Dose: 10 mg Multivitamins/Minerals (Therapeutic-M Tab) 1 tab PO DAILY [facility] Last Admin: 07/29/17 09:51 Dose: 1 tab Pantoprazole Sodium (Protonix Ec Tab) 40 mg PO DAILY [facility] Last Admin: 07/29/17 09:51 Dose: 40 mg Quetiapine Fumarate (Seroquel) 100 mg PO HS [facility] Last Admin: 07/29/17 21:51 Dose: 100 mg Saccharomyces Boulardii (Florastor) 250 mg PO BID [facility] Last Admin: 07/29/17 17:41 Dose: 250 mg Fluticasone/Salmeterol (Advair Diskus 250/50) 1 puff INH RBID [facility] Last Admin: 07/30/17 07:16 Dose: 1 puff Trazodone HCl (Desyrel) 100 mg PO HS [facility] Last Admin: 07/29/17 21:51 Dose: 100 mg - Labs Labs: 07/28/17 17:19 07/28/17 17:19 PT 13.6 SECONDS (9.7-12.2) H 07/25/17 08:10 INR 1.2 07/25/17 08:10 APTT 32 SECONDS (21-34) 07/25/17 08:10 - Constitutional Appears: No Acute Distress - Head Exam Head Exam: ATRAUMATIC, NORMOCEPHALIC - Eye Exam Eye Exam: EOMI, Normal appearance - ENT Exam ENT Exam: Mucous Membranes Moist - Respiratory Exam Respiratory Exam: Wheezes (with coarse breath sounds L>R), NORMAL BREATHING PATTERN. absent: Respiratory Distress - Cardiovascular Exam Cardiovascular Exam: REGULAR RHYTHM, +S1, +S2 - GI/Abdominal Exam GI & Abdominal Exam: Soft. absent: Tenderness - Neurological Exam Neurological Exam: Alert, Awake, Oriented x3 - Psychiatric Exam Psychiatric exam: Normal Affect, Normal Mood - Skin Skin Exam: Dry, Warm Assessment and Plan - Assessment and Plan (Free Text) Plan: COPD exacerbation PNA vs URI vs LRI vs Bronchitis Pulm consult placed to Dr. Terrazas- recs appreciated CXR 07/25/17- no active disease Blood cx- negative Albuterol 1 puff q4hrs prn Azithromycin 500mg IV daily (started 07/26/17) Ceftriaxone 1g IV daily (started 07/27/17) Robutussin DM 10mL PO TID Solumedrol 60mg IV q8hrs Singulair 10mg PO qhs Advair 1puff rBID afebrile >24hrs O2 sat >95% HTN Metoprolol 25mg PO BID Insomnia Seroquel 100mg PO qhs Trazodone 100mg PO qhs Hx of EtOH abuse Folic Acid Multivitamin Prophylaxis Lovenox 40mg SC daily Protonix 40mg PO daily Florastor 250mg PO BID
[2017-07-30] MEDS: Pantoprazole 40 mg EC Tab PO SCH (10:12)
[2017-07-30] MEDS: Enoxaparin 40 mg Syringe SC SCH (10:12)
[2017-07-30] MEDS: Multivitamin With Minerals Tab PO SCH (10:12)
[2017-07-30] MEDS: Saccharomyces Boulardi 250 mg Cap PO SCH ×2 (10:12→17:34)
[2017-07-30] MEDS: Azithromycin 500 MG in Sodium Chloride 0.9% 250 ML IVPB SCH (11:35)
--- NOTE | 2017-07-30 19:20 | CP.PCM.PN ---
Subjective - Date & Time of Evaluation Date of Evaluation: 07/30/17 Time of Evaluation: 11:40 - Subjective Subjective: clinically same Objective - Vital Signs/Intake and Output Vital Signs (last 24 hours): Temp Pulse Resp BP Pulse Ox 97.7 F 76 18 144/75 95 07/30/17 16:00 07/30/17 16:00 07/30/17 16:00 07/30/17 17:34 07/30/17 16:00 - Medications Medications: Current Medications Albuterol (Ventolin Hfa 90 Mcg/Actuation (8 G)) 1 puff IH RQ4 PRN PRN Reason: Shortness of Breath Last Admin: 07/30/17 15:47 Dose: 1 puff Enoxaparin Sodium (Lovenox) 40 mg SC DAILY [facility] Last Admin: 07/30/17 10:12 Dose: 40 mg Folic Acid (Folic Acid) 1 mg PO DAILY [facility] Last Admin: 07/30/17 10:12 Dose: 1 mg Guaifenesin/Dextromethorphan (Robitussin Dm) 10 ml PO TID PRN PRN Reason: Cough and congestion Last Admin: 07/29/17 02:14 Dose: 10 ml Azithromycin 500 mg/ Sodium (Chloride) 250 mls @ 250 mls/hr IVPB DAILY [facility] Last Admin: 07/30/17 11:35 Dose: 250 mls/hr Ceftriaxone Sodium 1 gm/ (Dextrose) 100 mls @ 50 mls/30 min IVPB DAILY [facility] Last Admin: 07/30/17 09:51 Dose: 50 mls/30 min Methylprednisolone (Solu-Medrol) 40 mg IVP Q8H [facility] Last Admin: 07/30/17 14:48 Dose: Not Given Metoprolol Tartrate (Lopressor) 25 mg PO BID [facility] Last Admin: 07/30/17 17:34 Dose: 25 mg Montelukast Sodium (Singulair) 10 mg PO HS [facility] Last Admin: 07/29/17 21:51 Dose: 10 mg Multivitamins/Minerals (Therapeutic-M Tab) 1 tab PO DAILY [facility] Last Admin: 07/30/17 10:12 Dose: 1 tab Pantoprazole Sodium (Protonix Ec Tab) 40 mg PO DAILY [facility] Last Admin: 07/30/17 10:12 Dose: 40 mg Quetiapine Fumarate (Seroquel) 100 mg PO HS [facility] Last Admin: 07/29/17 21:51 Dose: 100 mg Saccharomyces Boulardii (Florastor) 250 mg PO BID [facility] Last Admin: 07/30/17 17:34 Dose: 250 mg Fluticasone/Salmeterol (Advair Diskus 250/50) 1 puff INH RBID [facility] Last Admin: 07/30/17 07:16 Dose: 1 puff Trazodone HCl (Desyrel) 100 mg PO HS [facility] Last Admin: 07/29/17 21:51 Dose: 100 mg - Labs Labs: 07/28/17 17:19 07/28/17 17:19 PT 13.6 SECONDS (9.7-12.2) H 07/25/17 08:10 INR 1.2 07/25/17 08:10 APTT 32 SECONDS (21-34) 07/25/17 08:10
--- NOTE | 2017-07-30 21:29 | CP.PCM.PN ---
Subjective - Date & Time of Evaluation Date of Evaluation: 07/30/17 Time of Evaluation: 21:29 Objective - Vital Signs/Intake and Output Vital Signs (last 24 hours): Temp Pulse Resp BP Pulse Ox 97.7 F 76 18 144/75 95 07/30/17 16:00 07/30/17 16:00 07/30/17 16:00 07/30/17 17:34 07/30/17 16:00 - Medications Medications: Current Medications Albuterol (Ventolin Hfa 90 Mcg/Actuation (8 G)) 1 puff IH RQ4 PRN PRN Reason: Shortness of Breath Last Admin: 07/30/17 19:35 Dose: 1 puff Enoxaparin Sodium (Lovenox) 40 mg SC DAILY [facility] Last Admin: 07/30/17 10:12 Dose: 40 mg Folic Acid (Folic Acid) 1 mg PO DAILY [facility] Last Admin: 07/30/17 10:12 Dose: 1 mg Guaifenesin/Dextromethorphan (Robitussin Dm) 10 ml PO TID PRN PRN Reason: Cough and congestion Last Admin: 07/29/17 02:14 Dose: 10 ml Azithromycin 500 mg/ Sodium (Chloride) 250 mls @ 250 mls/hr IVPB DAILY [facility] Last Admin: 07/30/17 11:35 Dose: 250 mls/hr Ceftriaxone Sodium 1 gm/ (Dextrose) 100 mls @ 50 mls/30 min IVPB DAILY [facility] Last Admin: 07/30/17 09:51 Dose: 50 mls/30 min Methylprednisolone (Solu-Medrol) 40 mg IVP Q8H [facility] Last Admin: 07/30/17 14:48 Dose: Not Given Metoprolol Tartrate (Lopressor) 25 mg PO BID [facility] Last Admin: 07/30/17 17:34 Dose: 25 mg Montelukast Sodium (Singulair) 10 mg PO [facility] Last Admin: 07/29/17 21:51 Dose: 10 mg Multivitamins/Minerals (Therapeutic-M Tab) 1 tab PO DAILY [facility] Last Admin: 07/30/17 10:12 Dose: 1 tab Pantoprazole Sodium (Protonix Ec Tab) 40 mg PO DAILY [facility] Last Admin: 07/30/17 10:12 Dose: 40 mg Quetiapine Fumarate (Seroquel) 100 mg PO [facility] Last Admin: 07/29/17 21:51 Dose: 100 mg Saccharomyces Boulardii (Florastor) 250 mg PO BID [facility] Last Admin: 07/30/17 17:34 Dose: 250 mg Fluticasone/Salmeterol (Advair Diskus 250/50) 1 puff INH RBID [facility] Last Admin: 07/30/17 19:34 Dose: 1 puff Trazodone HCl (Desyrel) 100 mg PO HS [facility] Last Admin: 07/29/17 21:51 Dose: 100 mg - Labs Labs: 07/28/17 17:19 07/28/17 17:19 PT 13.6 SECONDS (9.7-12.2) H 07/25/17 08:10 INR 1.2 07/25/17 08:10 APTT 32 SECONDS (21-34) 07/25/17 08:10
[2017-07-31 00:48] VITALS: RESP 20
[2017-07-31] MEDS: MethylPREDNISolone 40 mg Vial IVP SCH (07:04)
[2017-07-31] MEDS: Fluticasone-Salmeterol 250-50mcg Diskus INH SCH (07:28)
[2017-07-31] MEDS: Albuterol HFA 90 mcg/actuation (8 g) IH PRN ×2 (07:29→12:01)
--- NOTE | 2017-07-31 07:39 | CP.PCM.PN ---
Subjective - Date & Time of Evaluation Date of Evaluation: 07/31/17 Time of Evaluation: 07:39 - Subjective Subjective: PGY2 medicine progress note for Dr. Zapata Patient seen and examined. Patient reports significant improvement in breathing since admission. Patient states he can walk two laps around the floor before beginning to feel short of breath. Objective - Vital Signs/Intake and Output Vital Signs (last 24 hours): Temp Pulse Resp BP Pulse Ox 97.6 F 77 20 150/84 96 07/30/17 23:28 07/30/17 23:28 07/30/17 23:28 07/30/17 23:28 07/30/17 23:28 Intake and Output: 07/31/17 07/31/17 06:59 18:59 Intake Total 240 Balance 240 - Medications Medications: Current Medications Albuterol (Ventolin Hfa 90 Mcg/Actuation (8 G)) 1 puff IH RQ4 PRN PRN Reason: Shortness of Breath Last Admin: 07/31/17 07:29 Dose: 1 puff Enoxaparin Sodium (Lovenox) 40 mg SC DAILY [facility] Last Admin: 07/30/17 10:12 Dose: 40 mg Folic Acid (Folic Acid) 1 mg PO DAILY [facility] Last Admin: 07/30/17 10:12 Dose: 1 mg Guaifenesin/Dextromethorphan (Robitussin Dm) 10 ml PO TID PRN PRN Reason: Cough and congestion Last Admin: 07/29/17 02:14 Dose: 10 ml Azithromycin 500 mg/ Sodium (Chloride) 250 mls @ 250 mls/hr IVPB DAILY [facility] Last Admin: 07/30/17 11:35 Dose: 250 mls/hr Ceftriaxone Sodium 1 gm/ (Dextrose) 100 mls @ 50 mls/30 min IVPB DAILY [facility] Last Admin: 07/30/17 09:51 Dose: 50 mls/30 min Methylprednisolone (Solu-Medrol) 40 mg IVP Q8H [facility] Last Admin: 07/31/17 07:04 Dose: 40 mg Metoprolol Tartrate (Lopressor) 25 mg PO BID [facility] Last Admin: 07/30/17 17:34 Dose: 25 mg Montelukast Sodium (Singulair) 10 mg PO HS [facility] Last Admin: 07/30/17 22:12 Dose: 10 mg Multivitamins/Minerals (Therapeutic-M Tab) 1 tab PO DAILY [facility] Last Admin: 07/30/17 10:12 Dose: 1 tab Pantoprazole Sodium (Protonix Ec Tab) 40 mg PO DAILY [facility] Last Admin: 07/30/17 10:12 Dose: 40 mg Quetiapine Fumarate (Seroquel) 100 mg PO HS [facility] Last Admin: 07/30/17 22:11 Dose: 100 mg Saccharomyces Boulardii (Florastor) 250 mg PO BID [facility] Last Admin: 07/30/17 17:34 Dose: 250 mg Fluticasone/Salmeterol (Advair Diskus 250/50) 1 puff INH RBID [facility] Last Admin: 07/31/17 07:28 Dose: 1 puff Trazodone HCl (Desyrel) 100 mg PO [facility] Last Admin: 07/30/17 22:11 Dose: 100 mg - Labs Labs: 07/28/17 17:19 07/28/17 17:19 PT 13.6 SECONDS (9.7-12.2) H 07/25/17 08:10 INR 1.2 07/25/17 08:10 APTT 32 SECONDS (21-34) 07/25/17 08:10 - Constitutional Appears: No Acute Distress - Head Exam Head Exam: ATRAUMATIC, NORMOCEPHALIC - Eye Exam Eye Exam: Normal appearance - ENT Exam ENT Exam: Mucous Membranes Moist - Respiratory Exam Respiratory Exam: NORMAL BREATHING PATTERN. absent: Respiratory Distress Additional comments: coarse breath sounds on right lung base - Cardiovascular Exam Cardiovascular Exam: +S1, +S2 - GI/Abdominal Exam GI & Abdominal Exam: Soft, Normal Bowel Sounds. absent: Tenderness - Extremities Exam Extremities Exam: absent: Pedal Edema - Neurological Exam Neurological Exam: Alert, Awake - Psychiatric Exam Psychiatric exam: Normal Affect - Skin Skin Exam: Warm Assessment and Plan - Assessment and Plan (Free Text) Assessment: COPD exacerbation PNA vs URI vs LRI vs Bronchitis Pulm consult placed to Dr. Terrazas- sandeep appreciated CXR 07/25/17- no active disease Blood cx- negative x 4 days afebrile O2 sat >95% Albuterol 1 puff q4hrs prn Azithromycin 500mg IV daily (started 07/26/17) Ceftriaxone 1g IV daily (started 07/27/17) Robutussin DM 10mL PO TID Solumedrol 40mg IV q8hrs Singulair 10mg PO qhs Advair 250/50 1puff rBID Leukocytosis improved likely due to solumedrol Patient has been afebrile for entire duration of admission HTN Metoprolol 25mg PO BID Insomnia Seroquel 100mg PO qhs Trazodone 100mg PO qhs Hx of Substance abuse Folic Acid Multivitamin Patient encouraged to stop smoking Prophylaxis Lovenox 40mg SC daily Protonix 40mg PO daily Florastor 250mg PO BID All medical management as per Dr. Zapata Patient is stable for discharge home per Dr. Zapata. Patient is to follow up with Dr. Zapata tomorrow 08/01/17 in his office. Patient is to resume his home medications with the following new medications: Spiriva 18mcg Handihaler, 2 puffs daily; Augmentin twice a day for 5 days, Medrol DosePak take as directed. Patient is to return to the ED if his symptoms reoccur or worsen.
[2017-07-31 08:07] VITALS: PULSE 76; TEMP 97.7; O2SAT 97
[2017-07-31 08:18] LABS: BASO # 0.1 K/uL (0.0-0.2); BASO % 0.5 % (0.0-2.0); HEMOGLOBIN 14.1 g/dL (12.0-18.0); LYMPH # 1.7 K/uL (1.0-4.3); LYMPH % 8.5 % (20.0-40.0); MEAN CELL VOLUME 94.6 fL (80.0-94.0); MEAN CORPUSCULAR HEMOGLOBIN 31.6 pg (27.0-31.0); MEAN CORPUSCULAR HGB CONC 33.4 g/dL (33.0-37.0); MEAN PLATELET VOLUME 8.2 fL (7.2-11.7); MONO # 1.2 K/uL (0.0-0.8); MONO % 5.8 % (0.0-10.0); NEUT # 17.2 K/uL (1.8-7.0); NEUT % 85.2 % (50.0-75.0); PLATELET COUNT 552 K/uL (130-400); RBC 4.47 Mil/uL (4.40-5.90); RED CELL DISTRIBUTION WIDTH 13.7 % (11.5-14.5); WHITE BLOOD COUNT 20.2 K/uL (4.8-10.8)
[2017-07-31 08:35] LABS: ALB/GLOB RATIO 1.3 (1.0-2.1); ALBUMIN 3.7 g/dL (3.5-5.0); ALT/SGPT 121 U/L (21-72); AST/SGOT 65 U/L (17-59); BLOOD UREA NITROGEN 22 mg/dL (9-20); CALCIUM 8.3 mg/dl (8.6-10.4); GFR AFRICAN-AMERICAN > 60; GFR NON-AFRICAN AMERICAN > 60
[2017-07-31] MEDS: Azithromycin 500 MG in Sodium Chloride 0.9% 250 ML IVPB SCH (10:00)
[2017-07-31 10:05] LABS: BANDS 5 % (0-2); LYMPHOCYTE 16 % (20-40); MONOCYTE 3 % (0-10); MYELOCYTE 1 % (0-0); NEUTROPHIL 75 % (50-75); TOTAL CELLS COUNTED 100
[2017-07-31 10:07] LABS: PLATELET ESTIMATE INCREASED (NORMAL)
[2017-07-31] MEDS: Enoxaparin 40 mg Syringe SC SCH (10:30)
[2017-07-31] MEDS: Saccharomyces Boulardi 250 mg Cap PO SCH (10:30)
[2017-07-31] MEDS: Pantoprazole 40 mg EC Tab PO SCH (10:30)
[2017-07-31] MEDS: Multivitamin With Minerals Tab PO SCH (10:30)
--- NOTE | 2017-07-31 10:41 | CP.PCM.PN ---
Subjective - Date & Time of Evaluation Date of Evaluation: 07/31/17 Time of Evaluation: 10:41 Objective - Vital Signs/Intake and Output Vital Signs (last 24 hours): Temp Pulse Resp BP Pulse Ox 97.7 F 76 20 132/80 97 07/31/17 07:00 07/31/17 07:00 07/31/17 07:00 07/31/17 07:00 07/31/17 07:00 Intake and Output: 07/31/17 07/31/17 06:59 18:59 Intake Total 240 Balance 240 - Medications Medications: Current Medications Albuterol (Ventolin Hfa 90 Mcg/Actuation (8 G)) 1 puff IH RQ4 PRN PRN Reason: Shortness of Breath Last Admin: 07/31/17 07:29 Dose: 1 puff Enoxaparin Sodium (Lovenox) 40 mg SC DAILY [facility] Last Admin: 07/30/17 10:12 Dose: 40 mg Folic Acid (Folic Acid) 1 mg PO DAILY [facility] Last Admin: 07/30/17 10:12 Dose: 1 mg Guaifenesin/Dextromethorphan (Robitussin Dm) 10 ml PO TID PRN PRN Reason: Cough and congestion Last Admin: 07/29/17 02:14 Dose: 10 ml Azithromycin 500 mg/ Sodium (Chloride) 250 mls @ 250 mls/hr IVPB DAILY [facility] Last Admin: 07/30/17 11:35 Dose: 250 mls/hr Ceftriaxone Sodium 1 gm/ (Dextrose) 100 mls @ 50 mls/30 min IVPB DAILY [facility] Last Admin: 07/30/17 09:51 Dose: 50 mls/30 min Methylprednisolone (Solu-Medrol) 40 mg IVP Q8H [facility] Last Admin: 07/31/17 07:04 Dose: 40 mg Metoprolol Tartrate (Lopressor) 25 mg PO BID [facility] Last Admin: 07/30/17 17:34 Dose: 25 mg Montelukast Sodium (Singulair) 10 mg PO HS [facility] Last Admin: 07/30/17 22:12 Dose: 10 mg Multivitamins/Minerals (Therapeutic-M Tab) 1 tab PO DAILY [facility] Last Admin: 07/30/17 10:12 Dose: 1 tab Pantoprazole Sodium (Protonix Ec Tab) 40 mg PO DAILY [facility] Last Admin: 07/30/17 10:12 Dose: 40 mg Quetiapine Fumarate (Seroquel) 100 mg PO [facility] Last Admin: 07/30/17 22:11 Dose: 100 mg Saccharomyces Boulardii (Florastor) 250 mg PO BID [facility] Last Admin: 07/30/17 17:34 Dose: 250 mg Fluticasone/Salmeterol (Advair Diskus 250/50) 1 puff INH RBID [facility] Last Admin: 07/31/17 07:28 Dose: 1 puff Trazodone HCl (Desyrel) 100 mg PO [facility] Last Admin: 07/30/17 22:11 Dose: 100 mg - Labs Labs: 07/31/17 08:11 07/31/17 08:11 PT 13.6 SECONDS (9.7-12.2) H 07/25/17 08:10 INR 1.2 07/25/17 08:10 APTT 32 SECONDS (21-34) 07/25/17 08:10
[2017-07-31 11:57] VITALS: BP 140/79
--- NOTE | 2017-07-31 16:24 | CP.PCM.PN ---
Subjective - Date & Time of Evaluation Date of Evaluation: 07/31/17 Time of Evaluation: 11:40 - Subjective Subjective: clinically same Objective - Vital Signs/Intake and Output Vital Signs (last 24 hours): Temp Pulse Resp BP Pulse Ox 97.7 F 76 20 140/79 97 07/31/17 07:00 07/31/17 07:00 07/31/17 07:00 07/31/17 10:30 07/31/17 07:00 Intake and Output: 07/31/17 07/31/17 06:59 18:59 Intake Total 240 Balance 240 - Medications Medications: Current Medications Albuterol (Ventolin Hfa 90 Mcg/Actuation (8 G)) 1 puff IH RQ4 PRN PRN Reason: Shortness of Breath Last Admin: 07/31/17 12:01 Dose: 1 puff Enoxaparin Sodium (Lovenox) 40 mg SC DAILY [facility] Last Admin: 07/31/17 10:30 Dose: 40 mg Folic Acid (Folic Acid) 1 mg PO DAILY [facility] Last Admin: 07/31/17 10:30 Dose: 1 mg Guaifenesin/Dextromethorphan (Robitussin Dm) 10 ml PO TID PRN PRN Reason: Cough and congestion Last Admin: 07/29/17 02:14 Dose: 10 ml Azithromycin 500 mg/ Sodium (Chloride) 250 mls @ 250 mls/hr IVPB DAILY [facility] Last Admin: 07/31/17 10:00 Dose: 250 mls/hr Ceftriaxone Sodium 1 gm/ (Dextrose) 100 mls @ 50 mls/30 min IVPB DAILY [facility] Last Admin: 07/31/17 10:00 Dose: 50 mls/30 min Methylprednisolone (Solu-Medrol) 40 mg IVP Q12 [facility] Metoprolol Tartrate (Lopressor) 25 mg PO BID [facility] Last Admin: 07/31/17 10:30 Dose: 25 mg Montelukast Sodium (Singulair) 10 mg PO HS [facility] Last Admin: 07/30/17 22:12 Dose: 10 mg Multivitamins/Minerals (Therapeutic-M Tab) 1 tab PO DAILY [facility] Last Admin: 07/31/17 10:30 Dose: 1 tab Pantoprazole Sodium (Protonix Ec Tab) 40 mg PO DAILY [facility] Last Admin: 07/31/17 10:30 Dose: 40 mg Quetiapine Fumarate (Seroquel) [address] [facility] Last Admin: 07/30/17 22:11 Dose: 100 mg Saccharomyces Boulardii (Florastor) 250 mg PO BID [facility] Last Admin: 07/31/17 10:30 Dose: 250 mg Fluticasone/Salmeterol (Advair Diskus 250/50) 1 puff INH RBID [facility] Last Admin: 07/31/17 07:28 Dose: 1 puff Trazodone HCl (Desyrel) [address] [facility] Last Admin: 07/30/17 22:11 Dose: 100 mg - Labs Labs: 07/31/17 08:11 07/31/17 08:11 PT 13.6 SECONDS (9.7-12.2) H 07/25/17 08:10 INR 1.2 07/25/17 08:10 APTT 32 SECONDS (21-34) 07/25/17 08:10 - Constitutional Appears: Well - Head Exam Head Exam: ATRAUMATIC, NORMAL INSPECTION, NORMOCEPHALIC - Eye Exam Eye Exam: EOMI, Normal appearance, PERRL Pupil Exam: NORMAL ACCOMODATION, PERRL - ENT Exam ENT Exam: Mucous Membranes Moist, Normal Exam - Neck Exam Neck Exam: Full ROM, Normal Inspection. absent: Lymphadenopathy - Respiratory Exam Respiratory Exam: Decreased Breath Sounds - Cardiovascular Exam Cardiovascular Exam: REGULAR RHYTHM, +S1, +S2 - GI/Abdominal Exam GI & Abdominal Exam: Soft, Diminished Bowel Sounds - Rectal Exam Rectal Exam: Deferred
[2017-07-31] MEDS ORDERED: MethylPREDNISolone 40 mg Vial IVP SCH (22:00)
== END 2017-07-31 16:30 | disposition home or self-care (01) | DRG 88 ==
LOC: C.ER 19:34 → C.9E 21:59 → C.6T 23:02
PROVIDERS: ADMIT Internal Medicine Nephrology; ATTEND Internal Medicine Nephrology
DX: J44.1 Chronic obstructive pulmonary disease with (acute) exacerbation (principal); D72.829 Elevated white blood cell count, unspecified; F17.210 Nicotine dependence, cigarettes, uncomplicated; G47.00 Insomnia, unspecified; G47.30 Sleep apnea, unspecified; I10 Essential (primary) hypertension; Z79.899 Other long term (current) drug therapy; Z87.01 Personal history of pneumonia (recurrent); F32.9 Major depressive disorder, single episode, unspecified